=== PATIENT | female | born 1950 | race Caucasian/White ===

== ENCOUNTER 2022-05-20 11:16 | Inpatient (IN) | payer MEDICARE ==
[~2022-05-20] VITALS: Ht 152.4 cm; Wt 51.0 kg
[2022-05-20] MEDS ORDERED: AMLO1CAP5 PO (13:00)
[2022-05-20] MEDS ORDERED: ATOR80TA76 PO (13:00)
[2022-05-20] MEDS ORDERED: NICO-685 TD (13:00)
[2022-05-20] MEDS ORDERED: FLUO40CA PO (13:00)
[2022-05-20] MEDS ORDERED: ASPI-1238 PO (13:00)
[2022-05-20] MEDS ORDERED: HYDR-3924 PO (13:00)
--- NOTE | 2022-05-20 15:47 | Occupational Therapy Eval ---
OT Evaluation-General/PLF Medical Diagnosis Admission Date Medical Diagnosis: CVA Onset Date: May 18, 2022 Therapy Diagnosis Therapy Diagnosis: decreased ADL status Referral Physician: Ila Referral Reason: Evaluation/Treatment Medical History Additional Medical History anxiety, HTN, tobacco abuse, dislipidemia Current History 05/18/22 ED due to R side weakness/inability to walk. MRI showed posterior L MCA CVA. Pt transferred to ARU 05/20/22 Social History Home: Apartment Current Living Status: Alone Entry Into Home: Stairs Without Railing Steps Into Home: 1 (small threshold) Pt's SO is able to stay with pt at discharge. Pt able to hold onto door jam to navigate threshold ADL-Prior Level of Function SCALE: Activities may be completed with or without assistive devices. 8-Idpxtntxjz-fpfzszz completes the activity by him/herself with no assistance from a helper. 5-Set-up or Clean-up Assistance-helper sets up or cleans up; patient completes activity. [place] assists only prior to or following the activity. 4-Supervision or Touching Assistance-helper provides verbal cues and/or touching/steadying and/or contact guard assistance as patient completes a ctivity. Assistance may be provided throughout the activity or intermittently. 3-Partial/Moderate Assistance-helper does LESS THAN HALF the effort. [place] lifts, holds or supports trunk or limbs, but provides less than half the effort. 2-Substantial/Maximal Assistance-helper does MORE THAN HALF the effort. [place] lifts or holds trunk or limbs and provides more than half the effort. 6-Chtouevbd-sphreb does ALL the effort. Patient does none of the effort to complete the activity. Or, the assistance of 2 or more helpers is required for the patient to complete the activity. If activity was not attempted, code reason: 7-Patient Refused. 9-Not Applicable-not attempted and the patient did not perform the activity before the current illness, exacerbation or injury. 10-Not Attempted due to Environmental Limitations-(lack of equipment, weather restraints, etc.). 88-Not Attempted due to Medical Conditions or Safety Concerns. ADL PLOF Comments Pt reports IND with ADLs and functional mobility, no AD. She has a tub/shower with GBs and HH showerhead, no SC or bath bench. Self Care: Independent Functional Cognition: Independent OT Current Status Subjective Pt agreeable to OT evaluation followed by OT/PT cotreat. Mental Status/Objective Patient Orientation: Person, Place, Time, Situation Current Glasses/Contacts: Yes (reading) Hearing Aids: No Dentures/Partials: No Hand Dominance: Right Upper Extremity ROM WFL, BUE shoulder flexion to approx 160 degrees. Upper Extremity Coordination slightly decreased R hand Upper Extremity Sensation Pt reports "duller" sensation in RUE. Numbness at times in R hand digits 3-4 Upper Extremity Strength RUE grossly 4-/5, LUE grossly 4/5 ADL-Treatment Eating (QC): 5 (pt states some difficulty with managing utensils, but able to manage) Oral Hygiene (QC): 4 (CGA standing at sink) Shower/Bathe Self (QC): 4 (CGA in stand. Pt able to wash/dry all parts.) Upper Body Dressing (QC): 6 (IND doffing/donning sweatshirt.) Lower Body Dressing (QC): 4 (CGA) On/Off Footwear (QC): 6 (IND donning/doffing socks/shoes/AFO sitting in chair) Toileting Hygiene (QC): 4 (CGA) Other Treatments OT evaluation complete, OT/PT cotreat due to skill of 2 clinicians required which a coordinator of rehabilitation services could not perform in order to coordinate UE/LEs, decrease fall risk, and due to pt's limitations in strength, activity tolerance, mobility and transfer. OT focused on ADLs, UE placement, cues for sequencing and safety. PT focused on LE placement, gross overall movement, transfers and mobility. Pt completed functional mobility and transfers including car transfer, mobility using FWW, stairs, uneven surface, toilet transfer. Pt completed toileting, CGA in stand for clothing management. Pt stood at sink to wash hands, bracing pelvis on sink for support. Pt demo'd ability to don/doff socks/shoes and AFO, as well as a sweatshirt. Pt declined showering and LE dressing at this time, as she had completed at other hospital prior to admission. Pt completed various balance tests. OT provided pt with built up handles for toothbrush and utensils. Pt st ates it feels easier to hold onto items in R hand. Pt completed mobility around [facility] common area, stood at table to complete RUE fine motor "Perfection" task. Pt able to place all pieces into correct location on board. Pt then performed functional mobility around [facility] common area, locating 9 cones on various surfaces, requiring VCs to locate last 3 cones. Pt returned to her room, com pleted toileting, and transferred to recliner. Post tx, pt in recliner, call light in reach and all needs met. During tx, pt appeared slightly impulsive requiring VCs for safety and sequencing. IND rolling, supine to/from sit. Min A sit to stand and bed to chair. 1 major LOB when asked to sit EOB (L leg scissored across R requiring Mod A to keep pt from falling onto bed. Education OT Patient Education: Correct positioning, Energy conservation, Modified ADL techniques, Progress toward Goal/Update tx plan, Purpose of tx/functional activities, Rehab process Teaching Recipient: Patient Teaching Methods: Discussion Response to Teaching: Verbalize Understanding BIMS CAM BIMS Expression of Ideas and Wants: Without Difficulty Understanding Verbal Content: Understands Brief Interview/Mental Status: Yes IRF CHRISTIANO BIMS: IRF CHRISTIANO BIMS Response (Comments) Value Repitition of Three Words Three 3 Recalls Socks Yes, No Cue Required 2 Recalls Blue Yes, No Cue Required 2 Recalls Bed Yes, No Cue Required 2 Year Correct 3 Month Accurate Within 5 Days 2 Day Correct 1 Total 15 CAM Mental Status Change/Baseline: 0 Inattention: 0 Disorganized thinkin Altered level of consciousness: 0 OT Short Term Goals Short Term Goals Time Frame: May 31, 2022 Shower/bathe self: 5 Upper body dressin Lower body dressin Putting on/taking off footwear: 5 OT Skiver Counter Goals Senior Living Goals Time Frame: Jun 11, 2022 Eating (QC): 6 Oral Hygiene (QC): 6 Toileting Hygiene (QC): 6 Shower/Bathe Self (QC): 6 Upper Body Dressing (QC): 6 Lower Body Dressing (QC): 6 On/Off Footwear (QC): 6 Additional Goals: 1-Demonstrate ADL Tasks, 2-Verbalize Understanding, 3- ImproveStrength/Pelon 1=Demonstrate adherence to instructed precautions during ADL tasks. 2=Patient will verbalize/demonstrate understanding of assistive devices/modifications for ADL. 3=Patient will improve strength/tolerance for activity to enable patient to perform ADL's. OT Education/Plan Problem List/Assessment Assessment: Decreased Activ Tolerance, Decreased UE Strength, Impaired Funct Balance, Impaired I ADL's, Impaired Self-Care Skills Discharge Recommendations Plan/Recommendations: Continue POC Treatment Plan/Plan of Care Patient would benefit from OT for education, treatment and training to promote independence in ADL's, mobility, safety and/or upper extremity function for ADL's. Plan of Care: ADL Retraining, Functional Mobility, Group Exercise/Act as Ind, UE Funct Exercise/Act, UE Neuromus Re-Ed/Coord Treatment Duration: Jun 11, 2022 Frequency: At least 5 of 7 days/Wk (IRF) Estimated Hrs Per Day: .25 hour per day Agreement: Yes Rehab Potential: Good Time Start Time: 15:23 Stop Time: 16:53 DATE: Jun 11, 2022 Total Time Billed (hr/min): 90 Billed Treatment Time [id number] PT eval, [id number] OT eval, [id number] Cotreat 1, EVL (10'), ADL 2 (30'), FA 3 (50') TERENCE CARRILLO OT May 20, 2022 15:46
[2022-05-20 16:01] VITALS: BP 165/85
--- NOTE | 2022-05-20 16:05 | Physical Therapy Evaluation ---
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 Reviewed History: Yes Social History Home: Apartment Current Living Status: Alone Entry Into Home: Stairs Without Railing PT Steps Into Home: 1 (small threshold) States her 2 BR apartment is small and she can hold onto objects while walking thru apartment Prior Prior Level of Function SCALE: Activities may be completed with or without assistive devices. 0-Wwojkaivza-yjatcow completes the activity by him/herself with no assistance from a helper. 5-Set-up or Clean-up Assistance-helper sets up or cleans up; patient completes activity. [place] assists only prior to or following the activity. 4-Supervision or Touching Assistance-helper provides verbal cues and/or touching/steadying and/or contact guard assistance as patient completes activity. Assistance may be provided throughout the activity or intermittently. 3-Partial/Moderate Assistance-helper does LESS THAN HALF the effort. [place] lifts, holds or supports trunk or limbs, but provides less than half the effort. 2-Substantial/Maximal Assistance-helper does MORE THAN HALF the effort. [place] lifts or holds trunk or limbs and provides more than half the effort. 3-Oymmhbryk-qtvjic does ALL the effort. Patient does none of the effort to com plete the activity. Or, the assistance of 2 or more helpers is required for the patient to complete the activity. If activity was not attempted, code reason: 7-Patient Refused. 9-Not Applicable-not attempted and the patient did not perform the activity before the current illness, exacerbation or injury. 10-Not Attempted due to Environmental Limitations-(lack of equipment, weather restraints, etc.). 88-Not Attempted due to Medical Conditions or Safety Concerns. Bed Mobility: 6 Transfers (B,C,W/C): 6 Gait: 6 Stairs: 6 Wheelchair Mobility: 9 Indoor Mobility (Ambulation): Independent Stairs: Independent Prior Devices Use: None PT Evaluation-Current Subjective Patient A&O x 4. Pleasant and conversational with appropriate humor. Eager to participate, however does exhibit impulsivity with functional tasks Pain Numeric Pain Scale: 0-No Pain Comment: No c/o pain Section J - Health Conditions 1. Rarely or not at all 2. Occasionally 3. Frequently 4. Almost constantly 8. Unable to answer Pain Effect on Sleep: 1 Pain Interference with Therapy: 1 Pain Interference w/Day-to-Day: 1 Pt/Family Goals To return home to apartment with help from s.o. as needed. To walk better. Objective Patient Orientation: Person, Place, Situation ROM/Strength ROM Upper Extremities Deferred to OT ROM Lower Extremities WNL (L) LE. WFL (R) hip/knee. Does exhibit AROM with (R) ankle DF/PF that is functional -- has (R) AFO but may not need terminal block assembler. Strength Upper Extremities Deferred to OT Strength Lower Extremities 5/5 (L) LE. 4/5 (R) hip flexion,abduction/adduction. 5-/5 (R) knee extension/flexion. (R) ankle DF 4-/5, PF 4-/5. Neuromuscular (Tone, Coordination, Reflexes) Impaired motor coordination noted with (R) LE with (R) heel to (L) green[place] and combo hip flexion with alt LAQ. (R) LE ataxia noted with gait, difficulty wiht foot placement. Sensory Vision: Wears Glasses Hearing: Functional Hand Dominance: Right Sensation Right Lower Extremit: Intact Sensation Left Lower Extremity: Intact Transfers Roll Left & Right (QC): 6 Sit to Lying (QC): 6 Lying to Sitting/Side of Bed(Q: 6 Sit to Stand (QC): 3 (Min - steadying assist with v.c. for hand placement, stand to FWW) Chair/Reg-lj-Dvtmf Xfer(QC): 3 (MIn (A) with FWW, ataxic (R) LE) Toilet Transfer (QC): 3 (min (A) with FW, assist to control descent.) Car Transfer (QC): 3 (impulsivity noted, min (A)) 1 major LOB when asked to sit to EOB following Milton -- (L) leg scissored across (R) with mod (A) required to keep patient from falling uncontrolled onto bed. Gait Does the Patient Walk?: Yes Mode of Locomotion: Walk Anticipated Mode of Locomotion: Walk Walk 10 feet (QC): 3 (Min (A) with FW, (R) LE ataxia) Walk 50 ft with 2 Turns(QC): 3 (Min (A) with FWW, narrow SUSANA, scissors occassionally, ataxic (R) LE, AFO in place) Walk 150 ft (QC): 3 (Min (A) with FWW, narrow SUSANA, scissors occassionally, ataxic (R) LE, AFO in place) Walking 10ft/uneven surface-QC: 3 (with FWW) Distance: Gait distance 75', 150', 175' with FWW, when fatigued the (R) LE lags Comments/Gait Description Narrow SUSANA, mild trendelenburg over (R) LE, ocassional scissoring during gait, occasionally leaves feet outside of frame of walker during turns. Wheelchair Training Does the Pt Use a Wheelchair?: No Wheel 50 ft with 2 turns (QC): 9 Wheel 150 ft (QC): 9 Type of Wheelchair: N/A Stairs #of Steps: 5 (x 2) 1 Step (curb) (QC): 3 (Min (A) with v.c. for walker placement and LE sequencing .) 4 Steps (QC): 3 (Min (A) with (B) handrails and v.c. for correct sequencing of LE's, step-to pattern) 12 Steps (QC): 10 Walking Assistive Device: Walker Balance Sitting Static: Normal Sitting Dynamic: Good Standing Static: Fair Standing Dynamic: Fair Picking up an Object (QC): 4 (min (A), patient quick and impulsive requiring assist to maintain position when cued to perform task) Special Test Comments Milton TU.7 seconds with FWW Gait speed: 6.1m/24.8 sec = .24m/sec Treatment Gait training focusing on managing a wider SUSANA during gait, ensuring that (R) LE steps up to (L) as patient fatigues. Education on correct sit<>stand technique for hand placement for transfer safety and to ensure that patient is not bracing with legs exclusively on chair for sit<>stand. Standing endurance activities/standing balance activities. Cognitive challenges during gait with naming an animal with each letter of the alphabet - patient able to perform without interruptions in gait pattern no LOB. Assessment/Needs Patient s/p (L) CVA with (R) hemiplegia/ataxia that mainly affects (R) LE. Does have AROM of (R) ankle, therefore AFO sent from [facility] may not be needed intermediate - continue to assess. Has safety awareness/impulsivity during transfers and upright mobility tasks that will be addressed. Has upright balance deficits that present as a current fall risk - will require skilled PT intervention to maximize balance/gait for return home. Has mild (L) LE weakness as well as moderate coordination deficits that will required strengthening exercises/neuro re-ed. Demonstrates motivation to improve. Will also benefit from group activities and/or co-treatments with OT for safety education, strengthening, problems solving, high level mobility coordination tasks for return home. . Rehab Potential: Good Equipment Needs FWW PT Inclusion Paraeducator Goals Inclusion Paraeducator Goals PT Inclusion Paraeducator Goals Time Frame: Jun 10, 2022 Roll Left to Right (QC): 6 Sit to Lying (QC): 6 Lying-Sitting on Side/Bed(QC): 6 Sit to Stand (QC): 6 Chair/Nmf-eo-Rvbtf Xfer(QC): 6 (Patient to perform stand<>pivot transfers with FWW mod (I) with correct hand placement 100% of time.) Toilet/Commode Transfer (QC): 6 Car Transfer (QC): 5 Does the Patient Walk: Yes Walk 10 feet (QC): 6 Walk 10ft-Uneven Surface(QC): 6 (With FWW) Walk 50ft with 2 Turns (QC): 6 Walk 150 ft (QC): 6 (Patient will ambulate 200' mod (I) with FWW with improved stepping strategy (R) LE.) Does the Pt use WC or Scooter?: No Wheel 50 feet with 2 turns (QC: 9 Type: N/A Wheel 150 feet: 9 Type: N/A 1 Step (curb) (QC): 6 (with FWW) 4 Steps (QC): 5 ((B) handrails) 12 Steps (QC): 5 ((B) handrails) Picking up an Object (QC): 6 LTG: Patient will demonstrate [place] Balance score of 45 or better. LTG: Patient will demonstrate TUG score of 24.7 seconds or less. PT Plan Problem List Problem List: Activity Tolerance, Functional Strength, Safety, Balance, Gait, Transfer Treatment/Plan Treatment Plan: Continue Plan of Care Treatment Plan: Education, Functional Activity Pelon, Functional Strength, Group Therapy, Gait, Safety, Therapeutic Exercise, Transfers, Other Neuro re-education Treatment Duration: Jun 10, 2022 Frequency: At least 5 of 7 days/Wk (IRF) Estimated Hrs Per Day: 1.5 hours per day Patient and/or Family Agrees t: Yes Safety Risks/Education Patient Education: Gait Training, Transfer Techniques, Safety Issues Teaching Recipient: Patient Teaching Methods: Demonstration, Discussion Response to Teaching: Verbalize Understanding, Unable to Comprehend Discharge Recommendations Plan Home with assist of s.o. Equpiment Recommendations-D/C: Front Wheeled Walker Time Time In: 1512 Time Out: 1653 DATE: May 20, 2022 Total Billed Treatment Time: 90 Total Billed Treatment 10' eval - moderate, ([id number]) 80' co-treatment Elizabeth Zamarripa PT May 20, 2022 16:05
--- NOTE | 2022-05-20 18:35 | PM&R Post Admission Assessment ---
PM&R HP Date of Visit: May 20, 2022 Time of Visit: 19:00 History of Present Illness CC: CVA HPI: This is a 72yoWF clinic patient of Dr Lombardo who presents from [facility] following acute left basal ganglia stroke with HTN urgency. She currently smokes and has for 55 years. Nicotine patch ordered. Right sided weakness is improving with therapy so the goal is to optimize function and increase stamina and confidence with ADL's in order to DC home alone. 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 She does not weak O2. Fall risk is high. Bowels are moving and voiding well. Eating well. Past Uvjqiiu-Oyiete-Nyomlo Hx Past Med/Social Hx: Reviewed Nursing Past Med/Soc Hx, Reviewed and Corrections made Patient Social History Marrital Status: single Employed/Student: employed Alcohol Use: Denies Use Smoking Status: Current Everyday Smoker Past Medical History Cardiac: High Cholesterol, Hypertension Neurological: Stroke Psychosocial: Anxiety Prior Level of Function Bed Mobility: 6 Transfers: 6 Gait: 6 Stairs: 6 Wheelchair Mobility: 9 Indoor Mobility (Ambulation): Independent Stairs: Independent Prior Devices Use: None Self Care: Independent Functional Cognition: Independent Current Level of Fuctioning Roll Left to Right: 6 Sit to Lyin Lying to Sitting/Side of Bed: 6 Sit to Stand: 3 (Min - steadying assist with v.c. for hand placement, stand to FWW) Chair/Kpg-ic-Emuom Xfer: 3 (MIn (A) with FWW, ataxic (R) LE) Car Transfer: 3 (impulsivity noted, min (A)) Does the Patient Walk: Yes Mode of Locomotion: Walk Anticipated Mode of Locomotion: Walk Walk 10 feet: 3 (Min (A) with FW, (R) LE ataxia) Walk 50 ft with 2 Turns: 3 (Min (A) with FWW, narrow SUSANA, scissors occassionally, ataxic (R) LE, AFO in place) Walk 150 ft: 3 (Min (A) with FWW, narrow SUSANA, scissors occassionally, ataxic (R) LE, AFO in place) Walking 10ft on uneven surface: 3 (with FWW) Does the Pt Use a Wheelchair: No Wheel 50 ft with 2 turns: 9 Wheel 150 ft: 9 Type of Wheelchair: N/A #of Steps: 5 (x 2) 1 Step (curb): 3 (Min (A) with v.c. for walker placement and LE sequencing.) 4 Steps: 3 (Min (A) with (B) handrails and v.c. for correct sequencing of LE's, step-to pattern) Walking Assistive Device: Walker 12 Steps: 10 Picking up an Object: 4 (min (A), patient quick and impulsive requiring assist to maintain position when cued to perform task) Eatin (pt states some difficulty with managing utensils, but able to manage) Oral Hygiene: 4 (CGA standing at sink) Shower/Bathe Self: 4 (CGA in stand. Pt able to wash/dry all parts.) Upper Body Dressin (IND doffing/donning sweatshirt.) Lower Body Dressin (CGA) On/Off Footwear: 6 (IND donning/doffing socks/shoes/AFO sitting in chair) Toileting Hygiene: 4 (CGA) PM&R Allergy/Meds/Data Review Allergies Coded Allergies: Penicillins (Verified Allergy, Unknown, RASH, 05/20/22) Home Medications Scheduled Amlodipine Besylate/Benazepril (Lotrel 5-20 mg Capsule), 1 EACH PO DAILY, (Reported) Aspirin (Aspirin EC), 81 MG PO DAILY, (Reported) Atorvastatin Calcium (Atorvastatin Calcium), 80 MG PO HS, (Reported) Fluoxetine HCl (Fluoxetine HCl), 40 MG PO DAILY, (Reported) Hydralazine HCl (Hydralazine HCl), 50 MG PO Q12H, (Reported) Nicotine (Nicotine Patch), 21 MG TD DAILY, (Reported) Current Medications Current Medications Reviewed Review of Systems Constitutional: see HPI, dizziness, malaise, weakness EENTM: no symptoms reported Respiratory: no symptoms reported Cardiovascular: no symptoms reported Gastrointestinal: no symptoms reported Genitourinary: no symptoms reported Musculoskeletal: back pain, joint pain Skin: no symptoms reported Psychiatric/Neurological: Anxiety, Depressed, Numbness, Weakness All Other Systems Reviewed Negative Unless Noted: Yes Physical Exam Physical Exam Vital Signs Vital Signs - First Documented 05/20/22 16:01 Temp 36.5 Pulse 67 Resp 20 B/P (MAP) 165/85 (111) Pulse Ox 98 O2 Delivery Room Air Capillary Refill : Height, Weight, BMI Height: '" Weight: lbs. oz. kg; BMI Method: General Appearance: No Apparent Distress, WD/WN, Chronically ill, Thin Eyes: Bilateral Eye Normal Inspection, Bilateral Eye PERRL HEENT: PERRL/EOMI, Normal ENT Inspection, Pharynx Normal Neck: Full Range of Motion, Normal Inspection, Non Tender, Supple, Carotid Bruit Respiratory: Chest Non Tender, Lungs Clear, No Accessory Muscle Use, No Respiratory Distress, Decreased Breath Sounds Cardiovascular: Regular Rate, Rhythm, No Edema, No Gallop, No JVD, No Murmur, Normal Peripheral Pulses Gastrointestinal: Normal Bowel Sounds, No Organomegaly, No Pulsatile Mass, Non Tender, Soft Back: Normal Inspection, No CVA Tenderness, No Vertebral Tenderness Extremity: Normal Capillary Refill, Normal Inspection, Normal Range of Motion, Non Tender, No Calf Tenderness, No Pedal Edema Neurologic/Psychiatric: Alert, Oriented x3, matlab developer II-XII Norm as Tested, Abnormal Gait, Depressed Affect, Motor Weakness (right sided weakness 3/5) Skin: Normal Color, Warm/Dry Lymphatic: No Adenopathy PM&R Medical Assessment & Plan REHAB/MEDICAL ASSESSMENT AND PLAN: REHAB IMPAIRMENT GROUP: CVA ETIOLOGIC DIAGNOSIS: CVA The comorbidities that impact the patients function and/or functional outcome by: right sided weakness, continued smoking, HTN OOC, fall risk REHAB PLAN: The patient is being admitted to our comprehensive inpatient rehabilitation facility and can tolerate the intensity of service consisting of at least: 180 minutes of therapy a day, 5 out of 7 days a week Rehab treatment will consist of: PT OT will focus on regaining stamina with ambulation along with ADL's in order to regain stamina and ADL's independence in order to return home The patient/family has a good understanding of our discharge process and will benefit from an interdisciplinary inpatient rehabilitation program. The patient has potential to make improvement and is in need of at least two of the following multidisciplinary therapies including but not limited to physical, occupational, speech, and prosthetics and orthotics. Additionally the patient will need services from respiratory, nutritional services, wound care, psychology, etc. (Customize this to each patient). Given the patients complex condition and risk of further medical complications, rehabilitation services cannot be safely or effectively provided at a lower level of care such as a snf facility. BARRIERS TO DISCHARGE: Lives alone ESTIMATED LOS: 10 days DISPOSITION: Home RELEVANT CHANGES SINCE PREADMISSION SCREENING: I have compared the patients medical and functional status at the time of the preadmission screening and there are: no changes PROGNOSIS: Good REHABILITATION GOALS: 1. PT OT will focus on regaining stamina with ambulation along with ADL's in order to regain stamina and ADL's independence in order to return home All the above goals were reviewed with the patient and he/she is in agreement. By signing this document, I acknowledge that I have personally performed a full physical examination on this patient within 24 hours of admission to this inpatient rehabilitation facility and have determined the patient to be able to tolerate the above course of treatment at an intensive level for a reasonable period of time. I will be completing a detailed individualized Plan of Care for this patient by day #4 of the patients stay based upon the Preadmission Screen, the Post-Admission Evaluation, and the therapy evaluations. Admission Dx/Comorbidities: (1) CVA (cerebral vascular accident) ICD Codes: I63.9 - Cerebral infarction, unspecified Assessment/Plan Assessment and Plan Assess & Plan/Chief Complaint Assessment: CVA with right sided weakness HTN HLP Smoker Plan: Monitor closely PT OT Monitor BP ALONZO ANGEL DO May 20, 2022 18:35
[2022-05-20] MEDS ORDERED: NON-FORMULARY MEDICATION 1 EA EA (Hydralazine HCl 50 MG) PO SCH (18:45)
[2022-05-20] MEDS ORDERED: ALPRAZolam 0.25 MG (XANAX) TAB PO PRN (19:15)
[2022-05-20] MEDS ORDERED: FLEET ENEMA ADULT 1 EA BTL PR PRN (19:15)
[2022-05-20] MEDS ORDERED: ONDANSETRON 4 MG (ZOFRAN) ORAL DISSOLVE TAB PO PRN (19:15)
[2022-05-20] MEDS ORDERED: ACETAMINOPHEN 325 MG TABLET PO PRN (19:15)
[2022-05-20] MEDS ORDERED: LOPERAMIDE 2 MG (IMODIUM) TABLET PO PRN (19:15)
[2022-05-20] MEDS ORDERED: BISACODYL 10 MG SUPP (DULCOLAX) PR PRN (19:15)
[2022-05-20] MEDS ORDERED: diphenhydrAMINE 25 MG TAB (BENADRYL) PO PRN (19:15)
[2022-05-20] MEDS ORDERED: MELATONIN 3 MG TABLET PO PRN (19:15)
[2022-05-20] MEDS ORDERED: LACTULOSE SYRUP 10GM/15ML (ENULOSE) 30ML UDC PO PRN (19:15)
[2022-05-20] MEDS ORDERED: DOCUSATE SODIUM 100 MG (COLACE) CAP PO PRN (19:15)
[2022-05-20] MEDS ORDERED: CALCIUM CARBONATE 500 MG (TUMS) TAB.CHEW PO PRN (19:15)
[2022-05-20] MEDS ORDERED: guaiFENesin/CODEINE (ROBITUSSIN AC) 10ML UDC PO PRN (19:15)
[2022-05-20] MEDS: NICOTINE 21 MG (NICODERM) PATCH TD SCH ×2 (19:50→21:27)
[2022-05-20 19:55] VITALS: BP 123/68
[2022-05-20] MEDS: hydrALAZINE (APRESOLINE) 25 MG TAB PO SCH (21:28)
[2022-05-20] MEDS: SENNA W/DOCUSATE (SENOKOT S) TABLET PO SCH (21:28)
[2022-05-20] MEDS: DOCUSATE SODIUM 100 MG (COLACE) CAP PO SCH (21:28)
[2022-05-20] MEDS: polyethylene glycoL POWDER 17 GM (MIRALAX) PACK PO SCH (21:28)
[2022-05-21 05:59] LABS: BASOPHILS # (AUTO) 0.1 10^3/uL (0.0-0.1); BASOPHILS % (AUTO) 2 % (0-10); EOSINOPHILS # (AUTO) 0.2 10^3/uL (0.0-0.3); EOSINOPHILS % (AUTO) 3 % (0-10); HEMATOCRIT 40 % (35-52); HEMOGLOBIN 13.5 g/dL (11.5-16.0); LYMPHOCYTES # (AUTO) 2.6 10^3/uL (1.0-4.0); LYMPHOCYTES % (AUTO) 40 % (12-44); MEAN CORPUSCULAR HEMOGLOBIN 31 pg (25-34); MEAN CORPUSCULAR HGB CONC 34 g/dL (32-36); MEAN CORPUSCULAR VOLUME 91 fL (80-99); MEAN PLATELET VOLUME 11.1 fL (9.0-12.2); MONOCYTES # (AUTO) 0.7 10^3/uL (0.0-1.0); MONOCYTES % (AUTO) 10 % (0-12); NEUTROPHILS # (AUTO) 2.9 10^3/uL (1.8-7.8); NEUTROPHILS % (AUTO) 45 % (42-75); PLATELET COUNT 252 10^3/uL (130-400); WHITE BLOOD COUNT 6.4 10^3/uL (4.3-11.0)
[2022-05-21 06:10] LABS: ALBUMIN 3.6 GM/DL (3.2-4.5); BILIRUBIN,TOTAL 0.5 MG/DL (0.1-1.0); CALCIUM 9.3 MG/DL (8.5-10.1); CREATININE SERUM 0.89 MG/DL (0.60-1.30); POTASSIUM 4.2 MMOL/L (3.6-5.0); TOTAL PROTEIN 6.3 GM/DL (6.4-8.2)
--- NOTE | 2022-05-21 06:43 | Individualized Plan of Care ---
Individualized Plan of Care Rehab Nursing IPOC Order Admission Date May 20, 2022 at 15:15 Current Orders Orders Heart Healthy (05/20/22 Lunch) Admission Arrival Bed Request (05/20/22 15:36) Ensure Plus Vanilla (05/20/22 17:57) Aspirin Enteric Coated Tablet (Ecotrin T (05/21/22 09:00) Atorvastatin Tablet (Lipitor Tablet) (05/20/22 21:00) Nicotine Patch (Nicoderm Patch) (05/21/22 09:00) (Nf) Amlodipine Besylate/Benazepril (Lot (05/21/22 09:00) (Nf) Fluoxetine Hcl (05/21/22 09:00) (Nf) Hydralazine Hcl (05/20/22 18:45) Patch Removal (Patch Removal) (05/21/22 08:59) Fluoxetine Capsule (Prozac Capsule) (05/21/22 09:00) Hydralazine Tablet (Apresoline Tablet) (05/20/22 21:00) Amlodipine Tablet (Norvasc Tablet) (05/21/22 09:00) Lisinopril Tablet (Zestril Tablet) (05/21/22 09:00) Admission Order(Inpt,Obs,Sdc) (05/20/22 19:02) Vital Signs: Per Unit Policy ( 08,16,00 (05/20/22 19:02) Taye Huang (05/20/22 19:02) Sequential Compression Device (05/20/22 19:02) Warehouse Shipper-Inpt Rehab Con (05/20/22 19:02) Rehab Nursing Orders-Ipoc (05/20/22 19:02) Physical Therapy Rehab Orders (05/20/22 19:02) Occupational Therapy Rehab Ord (05/20/22 19:02) Speech Therapy Rehab Orders (05/20/22 19:02) Cbc With Automated Diff (05/21/22 06:00) Comprehensive Metabolic Panel (05/21/22 06:00) Precautions (Aru) (05/20/22 19:02) Weekly Weight WEEK (05/20/22 19:02) Rehab-Intensity Of Therapy (05/20/22 19:02) Initiate Admission Nursing Pro .admission (05/20/22 19:02) Alprazolam Tablet (Xanax Tablet) (05/20/22 19:15) Calcium Carbonate Chew Tablet (Antacid C (05/20/22 19:15) Diphenhydramine Tablet (Benadryl Tablet) (05/20/22 19:15) Docusate Sodium Capsule (Colace Capsule) (05/20/22 21:00) Docusate Sodium Capsule (Colace Capsule) (05/20/22 19:15) Bisacodyl Suppository (Dulcolax Supposit (05/20/22 19:15) Lactulose Oral Solution (Enulose Oral So (05/20/22 19:15) Na Phos/Na Biphos Enema (Fleet Enema Bakari (05/20/22 19:15) Guaifenesin/Codeine Syrup (Robitussin Ac (05/20/22 19:15) Loperamide Tablet (Imodium Tablet) (05/20/22 19:15) Melatonin Tablet (Melatonin Tablet) (05/20/22 19:15) Polyethylene Glycol Powder Pkt (Miralax (05/20/22 21:00) Ondansetron Oral Dissolve Tab (Zofran (05/20/22 19:15) Senna S Tablet (Senokot S Tablet) (05/20/22 21:00) Acetaminophen Tablet/Caplet (Tylenol T (05/20/22 19:15) Code/Resuscitation (05/20/22 19:03) Ambulate 08,12,20 (05/20/22 19:03) Sequential Compression Device ONCE (05/20/22 19:03) Initiate Admission Nursing Pro .admission (05/20/22 19:03) Isolation Central Supply Req (05/20/22 19:03) Nicotine Patch (Nicoderm Patch) (05/20/22 19:30) Patch Removal (Patch Removal) (05/21/22 08:59) Patient Visit (05/20/22 ) Pt Eval Moderate Complexity (05/20/22 ) Gait Training, Ea 15 Min (05/20/22 ) Functional Activities, Ea 15 (05/20/22 ) Patient Visit (05/21/22 ) Gait Training, Ea 15 Min (05/21/22 ) Functional Activities, Ea 15 (05/21/22 ) Exercise Therap, Ea 15 Min (05/21/22 ) Patient Visit (05/21/22 ) Gait Training, Ea 15 Min (05/21/22 ) Exercise Therap, Ea 15 Min (05/21/22 ) Rehab Nursing Orders: Ongoing Assess. of Cognitive Status, Ongoing Assess. of Function Status, Bladder Management, Bladder Scan, Bladder Training, Bowel Management, Bowel Training, Disease Management & Educaiton, DVT Prophylaxis, Fall Prevention, Fluid/Electrolyte/Nutrition Mgmt, Infection Prevention, Medication Management & Education, Management of Risks & Complications, Management of Skin Intergrity, Nutrition Management, Pain Management, Patient/Family Support, Safety Management Intensity of Therapy to be met Patient to be seen: Min.3h per day/5 of 7d PT IPOC Problem List: Activity Tolerance, Functional Strength, Safety, Balance, Gait, Transfer Treatment Plan: Continue Plan of Care Education, Functional Activity Pelon, Functional Strength, Group Therapy, Gait, Safety, Therapeutic Exercise, Transfers, Other Treatment Duration: Jun 10, 2022 Frequency: At least 5 of 7 days/Wk (IRF) Estimated Hrs Per Day: 1.5 hours per day OT IPOC Problems: Decreased Activ Tolerance, Decreased UE Strength, Impaired Funct Balance, Impaired I ADL's, Impaired Self-Care Skills OT Treatment, Training and Edu: Yes Plan of Care: ADL Retraining, Functional Mobility, Group Exercise/Act as Ind, UE Funct Exercise/Act, UE Neuromus Re-Ed/Coord Treatment Duration: Jun 11, 2022 Frequency: At least 5 of 7 days/Wk (IRF) Estimated Hrs Per Day: .[address] IPOC Speech Therapy Treatment Plan: Discontinue ST Treatment Duration: May 20, 2022 Frequency: Modified Program (IRF) Estimated Hrs Per Day: Other Warehouse Shipper/Case Mgmt Warehouse Shipper/Case Managemen: Discharge Planning Dietitian/Reel And Rewinder Operator Dietitian/Reel And Rewinder Operator to monitor nutritional status and make changes and/or recommendations as needed and work with speech pathology on dietary upgrades as the occur. Physician IPOC Medical Issues being managed closely and that require the 24 hour availability of a physician: Recent CVA with labile BP will require close monitoring and will monitor lungs closely due to smoking hx and monitor for any decompensation Medical Issues: Bowel/Bladder Function, DVT Prophylaxis, Falls Precautions, Fluid/Electrolyte/Nutrition Balance, Infection Protection, Pain Management Brief Synthesis of Preadmission Screen, Post-Admission Evaluation, and Therapy Evaluations: PT OT will focus on regaining strength from CVA residual with use of AD in order to increase ADL independence in order to return home Medical Prognosis: Good Anticipated Length of Stay: 7 days ALONZO ANGEL DO May 21, 2022 06:43
--- NOTE | 2022-05-21 06:43 | PM&R Progress Note ---
Subjective HPI/CC On Admission Date Seen by Provider: May 21, 2022 Time Seen by Provider: 12:30 Subjective/Events-last exam 05/21/2022: Doing well Participation is good No major concerns BP stable Labs reviewed Review of Systems General: Fatigue, Malaise Objective Exam Vital Signs Vital Signs Date Time Temp Pulse Resp B/P (MAP) Pulse Ox O2 Delivery O2 Flow Rate FiO2 05/21/22 08:20 Room Air 05/21/22 08:00 36.6 72 18 144/80 (101) 94 Capillary Refill : General Appearance: No Apparent Distress, WD/WN, Chronically ill, Thin HEENT: PERRL/EOMI, Normal ENT Inspection, Pharynx Normal Neck: Full Range of Motion, Normal Inspection, Non Tender, Supple, Carotid Bruit Respiratory: Chest Non Tender, Lungs Clear, No Accessory Muscle Use, No Respiratory Distress, Decreased Breath Sounds Cardiovascular: Regular Rate, Rhythm, No Edema, No Gallop, No JVD, No Murmur, Normal Peripheral Pulses Gastrointestinal: Normal Bowel Sounds, No Organomegaly, No Pulsatile Mass, Non Tender, Soft Back: Normal Inspection, No CVA Tenderness, No Vertebral Tenderness Extremity: Normal Capillary Refill, Normal Inspection, Normal Range of Motion, Non Tender, No Calf Tenderness, No Pedal Edema Neurologic/Psychiatric: Alert, Oriented x3, basket turner II-XII Norm as Tested, Abnormal Gait, Depressed Affect, Motor Weakness (right sided weakness 3/5) Skin: Normal Color, Warm/Dry Lymphatic: No Adenopathy Results/Procedures Lab Laboratory Tests 05/21/22 05:40 Patient resulted labs reviewed. FIM Transfers Therapy Code Descriptions/Definitions Functional Matteson Measure: 0=Not Assessed/NA 4=Minimal Assistance 1=Total Assistance 5=Supervision or Setup 2=Maximal Assistance 6=Modified Matt[place] 3=Moderate Assistance 7=Complete IndependenceSCALE: Activities may be completed with or without assistive devices. 5-Dcnfnqunnj-zpsjtov completes the activity by him/herself with no assistance from a helper. 5-Set-up or Clean-up Assistance-helper sets up or cleans up; patient completes activity. Corona assists only prior to or following the activity. 4-Supervision or Touching Assistance-helper provides verbal cues and/or touching/steadying and/or contact guard assistance as patient completes activity. Assistance may be provided throughout the activity or intermittently. 3-Partial/Moderate Assistance-helper does LESS THAN HALF the effort. Corona lifts, holds or supports trunk or limbs, but provides less than half the effort. 2-Substantial/Maximal Assistance-helper does MORE THAN HALF the effort. Corona lifts or holds trunk or limbs and provides more than half the effort. 4-Uipwhjevd-vjqtks does ALL the effort. Patient does none of the effort to complete the activity. Or, the assistance of 2 or more helpers is required for the patient to complete the activity. If activity was not attempted, code reason: 7-Patient Refused. 9-Not Applicable-not attempted and the patient did not perform the activity before the current illness, exacerbation or injury. 10-Not Attempted due to Environmental Limitations-(lack of equipment, weather restraints, etc.). 88-Not Attempted due to Medical Conditions or Safety Concerns. Roll Left to Right (QC): 6 Sit to Lying (QC): 6 Sit to Stand (QC): 3 (Min - steadying assist with v.c. for hand placement, stand to FWW) Chair/Fsn-hi-Outpq Xfer(QC): 3 (MIn (A) with FWW, ataxic (R) LE) Car Transfer (QC): 3 (impulsivity noted, min (A)) Gait Training Does the Patient Walk?: Yes Walk 10 feet (QC): 3 (Min (A) with FW, (R) LE ataxia) Walk 50 ft with 2 Turns(QC): 3 (Min (A) with FWW, narrow SUSANA, scissors occassionally, ataxic (R) LE, AFO in place) Walk 150 ft (QC): 3 (Min (A) with FWW, narrow SUASNA, scissors occassionally, ataxic (R) LE, AFO in place) Walking 10ft/uneven surface-QC: 3 (with FWW) Wheelchair Training Does the Pt Use a Wheelchair?: No Wheel 50 ft with 2 turns (QC): 9 Wheel 150 ft (QC): 9 Type of Wheelchair: N/A Stair Training #of Steps: 5 (x 2) 1 Step (curb) (QC): 3 (Min (A) with v.c. for walker placement and LE sequencing.) 4 Steps (QC): 3 (Min (A) with (B) handrails and v.c. for correct sequencing of LE's, step-to pattern) 12 Steps (QC): 10 Balance Picking up an Object (QC): 4 (min (A), patient quick and impulsive requiring assist to maintain position when cued to perform task) ADL-Treatment Eating (QC): 5 (pt states some difficulty with managing utensils, but able to manage) Oral Hygiene (QC): 4 (CGA standing at sink) Shower/Bathe Self (QC): 4 (CGA in stand. Pt able to wash/dry all parts.) Upper Body Dressing (QC): 6 (IND doffing/donning sweatshirt.) Lower Body Dressing (QC): 4 (CGA) On/Off Footwear (QC): 6 (IND donning/doffing socks/shoes/AFO sitting in chair) Toileting Hygiene (QC): 4 (CGA) Assessment/Plan Assessment and Plan Assess & Plan/Chief Complaint Assessment: CVA with right sided weakness HTN HLP Smoker Plan: Monitor closely PT OT Monitor BP 05/21/2022: Monitor closely (1) CVA (cerebral vascular accident) ALONZO ANGEL DO May 21, 2022 06:43
[2022-05-21 08:00] VITALS: BP 144/80
[2022-05-21] MEDS: hydrALAZINE (APRESOLINE) 25 MG TAB PO SCH ×2 (08:04→21:07)
[2022-05-21] MEDS: ASPIRIN E.C. 81 MG (ECOTRIN) TAB PO SCH (08:05)
[2022-05-21] MEDS: amLODIPine 5 MG (NORVASC) TAB PO SCH (08:05)
[2022-05-21] MEDS: FLUoxetine HCL 20 MG (PROzac) CAP PO SCH (08:05)
[2022-05-21] MEDS: lisINopril 20 MG (PRINIVIL) TABLET PO SCH (08:05)
[2022-05-21] MEDS: NICOTINE 21 MG (NICODERM) PATCH TD SCH (08:06)
[2022-05-21] MEDS: polyethylene glycoL POWDER 17 GM (MIRALAX) PACK PO SCH ×2 (08:07→21:07)
[2022-05-21] MEDS: SENNA W/DOCUSATE (SENOKOT S) TABLET PO SCH ×2 (08:07→21:07)
[2022-05-21] MEDS: NICOTINE PATCH REMOVAL TP SCH (08:07)
[2022-05-21] MEDS: DOCUSATE SODIUM 100 MG (COLACE) CAP PO SCH ×2 (08:07→21:07)
[2022-05-21] MEDS ORDERED: NICOTINE PATCH REMOVAL TP SCH (08:59)
[2022-05-21] MEDS ORDERED: NICOTINE 21 MG (NICODERM) PATCH TD SCH (09:00)
[2022-05-21] MEDS ORDERED: NON-FORMULARY MEDICATION 1 EA EA (Fluoxetine HCl 40 MG) PO SCH (09:00)
--- NOTE | 2022-05-21 11:14 | Speech Therapy Progress Note ---
Therapy Progress Note Speech pathology has received a cognitive linguistic evaluation and completed a medical chart review. Additionally, the clinician consulted with the occupational therapist for professional insight and experience. At this time, the patient does not appear to have cognitive needs or warrant skilled speech pathology. Please re-consult speech pathology if services would be appropriate or be of any assistance throughout the the rehabilitation process. Thank you. YOSELIN CONDON May 21, 2022 11:14
--- NOTE | 2022-05-21 12:46 | Physical Therapy Daily Note ---
PT Daily Note-Current Subjective Pt found lying in bed upon entry. Agreed to PT. Reports that she is not having any pain pre-treatment. States that she gets tired a lot faster than she did before her stroke. She states she would like to be independent at home again. Pain Section J - Health Conditions 1. Rarely or not at all 2. Occasionally 3. Frequently 4. Almost constantly 8. Unable to answer Pain Effect on Sleep: 1 Pain Interference with Therapy: 1 Pain Interference w/Day-to-Day: 1 Mental Status Patient Orientation: Person, Place, Time Transfers SCALE: Activities may be completed with or without assistive devices. 0-Diaiezrjkn-vevggyl completes the activity by him/herself with no assistance from a helper. 5-Set-up or Clean-up Assistance-helper sets up or cleans up; patient completes activity. Dexter assists only prior to or following the activity. 4-Supervision or Touching Assistance-helper provides verbal cues and/or touching/steadying and/or contact guard assistance as patient completes activity. Assistance may be provided throughout the activity or intermittently. 3-Partial/Moderate Assistance-helper does LESS THAN HALF the effort. Dexter lifts, holds or supports trunk or limbs, but provides less than half the effort. 2-Substantial/Maximal Assistance-helper does MORE THAN HALF the effort. Dexter lifts or holds trunk or limbs and provides more than half the effort. 8-Zvgavwbbv-comwss does ALL the effort. Patient does none of the effort to complete the activity. Or, the assistance of 2 or more helpers is required for the patient to complete the activity. If activity was not attempted, code reason: 7-Patient Refused. 9-Not Applicable-not attempted and the patient did not perform the activity before the current illness, exacerbation or injury. 10-Not Attempted due to Environmental Limitations-(lack of equipment, weather restraints, etc.). 88-Not Attempted due to Medical Conditions or Safety Concerns. Sit to Lying (QC): 6 Lying to Sitting/Side of Bed(Q: 6 Sit to Stand (QC): 3 Pt independent with bed mobility. MIN lifting assistance with sit to stand transfers. Weight Bearing Weight Bearing/Tolerated Weight Bearing/Tolerated Gait Training Does the Patient Walk?: Yes Distance: 200, 100, 50 Walk 10 feet (QC): 3 Walk 50 ft with 2 Turns(QC): 3 Walk 150 ft (QC): 3 Gait Persons Needed: 1 Gait Assistive Device: FWW Pt MIN assist with ambulation using FWW. Pt occasionally loses control of affected LE and displays LOB requiring steadying assistance from LOG HANDLING EQUIPMENT OPERATOR. Requires VC/TCs for exaggerated heel strike during ambulation. Ambulated 350 feet total. Wheelchair Training Does the Pt Use a Wheelchair?: No Treatments Standing exercises: heel/toe raises, hamstring curls, step-ups, forward heel taps, step-ups sideways x 20 each Seated exercises: marches, hip abd/add x 20 each Balance training: AirX 1' normal stance. Tandem stance 30 seconds x 2. Assessment Current Status: Good Progress Pt displays good muscle strength throughout treatment. Pt demonstrates muscle fatigue with therapeutic exercises and gait training. Required frequent reminders to correct gait pattern and improve heel strike. Continue to progress pt as tolerated per POC to increase strength, endurance, and functional ability. PT Mcfp Goals Design Verification Engineer Goals PT Mcfp Goals Time Frame: Jun 10, 2022 Roll Left & Right (QC): 6 Sit to Lying (QC): 6 Lying-Sitting on Side/Bed(QC): 6 Sit to Stand (QC): 6 Chair/Ybw-xy-Zwply Xfer(QC): 6 (Patient to perform stand<>pivot transfers with FWW mod (I) with correct hand placement 100% of time.) Toilet Transfer (QC): 6 Car Transfer (QC): 5 Does the Patient Walk: Yes Walk 10 feet (QC): 6 Walk 50ft with 2 Turns (QC): 6 Walk 150 ft (QC): 6 (Patient will ambulate 200' mod (I) with FWW with improved stepping strategy (R) LE.) Walking 10ft on Uneven Surface: 6 (With FWW) 1 Step (curb) (QC): 6 (with FWW) 4 Steps (QC): 5 ((B) handrails) 12 Steps (QC): 5 ((B) handrails) Picking up an Object (QC): 6 Does the Pt use WC or Scooter?: No Wheel 50 feet with 2 turns (QC: 9 Type: N/A Wheel 150 feet: 9 Type: N/A PT Plan Treatment/Plan Treatment Plan: Continue Plan of Care Treatment Plan: Education, Functional Activity Pelon, Functional Strength, Group Therapy, Gait, Safety, Therapeutic Exercise, Transfers, Other Treatment Duration: Jun 10, 2022 Frequency: At least 5 of 7 days/Wk (IRF) Estimated Hrs Per Day: 1.5 hours per day Patient and/or Family Agrees t: Yes Time Time In: 0900 Time Out: 1000 DATE: May 21, 2022 Total Billed Treatment Time: 60 Total Billed Treatment 1 visit GT 1x FA 1x EX 2x Independent treatment time: 60 [place] ROSALES PTA May 21, 2022 12:46
--- NOTE | 2022-05-21 13:27 | Occupational Ther Daily Note ---
OT Current Status-Daily Note Subjective Pt sleeping in bed, woke to name. Pt agrees to therapy. No c/o pain. Mental Status/Objective Patient Orientation: Person, Place, Time, Situation ADL-Treatment After set up, pt able to complete lower body dressing and footwear by self. Pt then ambulated using FWW to bathroom, with cues for foot placement. Independent with toileting. Standing at sink, independent with oral care. Therapy Code Descriptions/Definitions Functional [place] Measure: 0=Not Assessed/NA 4=Minimal Assistance 1=Total Assistance 5=Supervision or Setup 2=Maximal Assistance 6=Modified [place] 3=Moderate Assistance 7=Complete IndependenceSCALE: Activities may be completed with or without assistive devices. 3-Bpkwpzkcdi-acibkog completes the activity by him/herself with no assistance from a helper. 5-Set-up or Clean-up Assistance-helper sets up or cleans up; patient completes activity. [place] assists only prior to or following the activity. 4-Supervision or Touching Assistance-helper provides verbal cues and/or touching/steadying and/or contact guard assistance as patient completes activity. Assistance may be provided throughout the activity or intermittently. 3-Partial/Moderate Assistance-helper does LESS THAN HALF the effort. [place] lifts, holds or supports trunk or limbs, but provides less than half the effort. 2-Substantial/Maximal Assistance-helper does MORE THAN HALF the effort. [place] lifts or holds trunk or limbs and provides more than half the effort. 8-Innnogcll-fjclxe does ALL the effort. Patient does none of the effort to complete the activity. Or, the assistance of 2 or more helpers is required for the patient to complete the activity. If activity was not attempted, code reason: 7-Patient Refused. 9-Not Applicable-not attempted and the patient did not perform the activity befo re the current illness, exacerbation or injury. 10-Not Attempted due to Environmental Limitations-(lack of equipment, weather re straints, etc.). 88-Not Attempted due to Medical Conditions or Safety Concerns. Oral Hygiene (QC): 6 Lower Body Dressing (QC): 5 On/Off Footwear: 5 Toileting Hygiene (QC): 6 Toilet Transfer (QC): 6 Other Treatment Pt ambulated using FWW to therapy gym. Pt requires cues for correct foot placement during ambulation. Pt then completed arm bike for 8 min at 20 lee resistance-2 min forward, 1 min backward. Pt then completed wrist flex/ext/uln dev/rad dev with 2# wt 2 sets 10 reps. After session, pt sitting on EOB with call light and phone in reach. All needs met in room. OT Short Term Goals Short Term Goals Time Frame: May 31, 2022 Shower/bathe self: 5 Upper body dressin Lower body dressin Putting on/taking off footwear: 5 OT Correction Goals Correction Goals Time Frame: Jun 11, 2022 Acute change in mental status: 0 Inattention: 0 Disorganized thinkin Altered level of consciousness: 0 Eating (QC): 6 Oral Hygiene (QC): 6 Toileting Hygiene (QC): 6 Shower/Bathe Self (QC): 6 Upper Body Dressing (QC): 6 Lower Body Dressing (QC): 6 On/Off Footwear (QC): 6 Additional Goals: 1-Demonstrate ADL Tasks, 2-Verbalize Understanding, 3- ImproveStrength/[place] 1=Demonstrate adherence to instructed precautions during ADL tasks. 2=Patient will verbalize/demonstrate understanding of assistive devices/modifications for ADL. 3=Patient will improve strength/tolerance for activity to enable patient to perform ADL's. OT Education/Plan Problem List/Assessment Assessment: Decreased Activ Tolerance, Impaired Funct Balance, Impaired Self- Care Skills Discharge Recommendations Plan/Recommendations: Continue POC Treatment Plan/Plan of Care Patient would benefit from OT for education, treatment and training to promote independence in ADL's, mobility, safety and/or upper extremity function for ADL's. Plan of Care: ADL Retraining, Functional Mobility, Group Exercise/Act as Ind, UE Funct Exercise/Act, UE Neuromus Re-Ed/Coord Treatment Duration: Jun 11, 2022 Frequency: At least 5 of 7 days/Wk (IRF) Estimated Hrs Per Day: .25 hour per day Agreement: Yes Rehab Potential: Good Time Start Time: 11:00 Stop Time: 12:00 DATE: May 21, 2022 Total Time Billed (hr/min): 60 Billed Treatment Time 1 visit-ADL 2 (30 min) EX 2 (30 min) MITCHEL BUENROSTRO May 21, 2022 13:27
--- NOTE | 2022-05-21 13:31 | Occupational Ther Daily Note ---
OT Current Status-Daily Note Subjective Pt alert, eating lunch sitting EOB. Pt agrees to therapy. No c/o pain. Mental Status/Objective Patient Orientation: Person, Place, Time, Situation Attachments: IV ADL-Treatment Independent with toileting and eating. Therapy Code Descriptions/Definitions Functional [place] Measure: 0=Not Assessed/NA 4=Minimal Assistance 1=Total Assistance 5=Supervision or Setup 2=Maximal Assistance 6=Modified [place] 3=Moderate Assistance 7=Complete IndependenceSCALE: Activities may be completed with or without assistive devices. 6-Khcobngczk-jxzjppk completes the activity by him/herself with no assistance from a helper. 5-Set-up or Clean-up Assistance-helper sets up or cleans up; patient completes activity. [place] assists only prior to or following the activity. 4-Supervision or Touching Assistance-helper provides verbal cues and/or touching/steadying and/or contact guard assistance as patient completes activity. Assistance may be provided throughout the activity or intermittently. 3-Partial/Moderate Assistance-helper does LESS THAN HALF the effort. [place] lifts, holds or supports trunk or limbs, but provides less than half the effort. 2-Substantial/Maximal Assistance-helper does MORE THAN HALF the effort. [place] lifts or holds trunk or limbs and provides more than half the effort. 6-Czkbmuzch-oadsir does ALL the effort. Patient does none of the effort to complete the activity. Or, the assistance of 2 or more helpers is required for the patient to complete the activity. If activity was not attempted, code reason: 7-Patient Refused. 9-Not Applicable-not attempted and the patient did not perform the activity before the current illness, exacerbation or injury. 10-Not Attempted due to Environmental Limitations-(lack of equipment, weather restraints, etc.). 88-Not Attempted due to Medical Conditions or Safety Concerns. Eating (QC): 6 Toileting Hygiene (QC): 6 Other Treatment Pt given HEP for B UE theraband exercises and therapy foam for legal financial specialist/pinch. Pt verbalized understanding of each exercises though did not complete. Skilled instruction for correct technique and modifications required. Will continue to work with pt on independence of HEP. After session, pt sitting EOB with call light/phone in reach. All needs met in room. OT Short Term Goals Short Term Goals Time Frame: May 31, 2022 Shower/bathe self: 5 Upper body dressin Lower body dressin Putting on/taking off footwear: 5 OT Fpc Goals Fpc Goals Time Frame: Jun 11, 2022 Acute change in mental status: 0 Inattention: 0 Disorganized thinkin Altered level of consciousness: 0 Eating (QC): 6 Oral Hygiene (QC): 6 Toileting Hygiene (QC): 6 Shower/Bathe Self (QC): 6 Upper Body Dressing (QC): 6 Lower Body Dressing (QC): 6 On/Off Footwear (QC): 6 Additional Goals: 1-Demonstrate ADL Tasks, 2-Verbalize Understanding, 3- ImproveStrength/[place] 1=Demonstrate adherence to instructed precautions during ADL tasks. 2=Patient will verbalize/demonstrate understanding of assistive devices/modifications for ADL. 3=Patient will improve strength/tolerance for activity to enable patient to perform ADL's. OT Education/Plan Problem List/Assessment Assessment: Decreased Activ Tolerance, Impaired Funct Balance Discharge Recommendations Plan/Recommendations: Continue POC Treatment Plan/Plan of Care Patient would benefit from OT for education, treatment and training to promote independence in ADL's, mobility, safety and/or upper extremity function for ADL's. Plan of Care: ADL Retraining, Functional Mobility, Group Exercise/Act as Ind, UE Funct Exercise/Act, UE Neuromus Re-Ed/Coord Treatment Duration: Jun 11, 2022 Frequency: At least 5 of 7 days/Wk (IRF) Estimated Hrs Per Day: .25 hour per day Agreement: Yes Rehab Potential: Good Time Start Time: 12:50 Stop Time: 13:20 DATE: May 21, 2022 Total Time Billed (hr/min): 30 Billed Treatment Time 1 visit-ADL 1 (20 min) EX 1 (10 min) MITCHEL BUENROSTRO May 21, 2022 13:31
--- NOTE | 2022-05-21 15:14 | Physical Therapy Daily Note ---
PT Daily Note-Current Subjective Pt found seated on EOB upon entry. Agreed to PT. States that she feels like she could fall asleep at any time if she tried. Reports that she is not having any pain. Pain Section J - Health Conditions 1. Rarely or not at all 2. Occasionally 3. Frequently 4. Almost constantly 8. Unable to answer Pain Effect on Sleep: 1 Pain Interference with Therapy: 1 Pain Interference w/Day-to-Day: 1 Mental Status Patient Orientation: Person, Place, Time Transfers SCALE: Activities may be completed with or without assistive devices. 1-Mhirbgsetf-hksjnkm completes the activity by him/herself with no assistance from a helper. 5-Set-up or Clean-up Assistance-helper sets up or cleans up; patient completes activity. [place] assists only prior to or following the activity. 4-Supervision or Touching Assistance-helper provides verbal cues and/or touching/steadying and/or contact guard assistance as patient completes activity. Assistance may be provided throughout the activity or intermittently. 3-Partial/Moderate Assistance-helper does LESS THAN HALF the effort. [place] lifts, holds or supports trunk or limbs, but provides less than half the effort. 2-Substantial/Maximal Assistance-helper does MORE THAN HALF the effort. [place] lifts or holds trunk or limbs and provides more than half the effort. 2-Ywfviocle-nopowr does ALL the effort. Patient does none of the effort to complete the activity. Or, the assistance of 2 or more helpers is required for the patient to complete the activity. If activity was not attempted, code reason: 7-Patient Refused. 9-Not Applicable-not attempted and the patient did not perform the activity before the current illness, exacerbation or injury. 10-Not Attempted due to Environmental Limitations-(lack of equipment, weather restraints, etc.). 88-Not Attempted due to Medical Conditions or Safety Concerns. Sit to Lying (QC): 6 Lying to Sitting/Side of Bed(Q: 6 Sit to Stand (QC): 4 Pt CGA with sit to stand transfers for safety. Independent with sit to stands and bed mobility. Required VCs for proper hand placement to complete sit to stand transfers. Weight Bearing Weight Bearing/Tolerated Weight Bearing/Tolerated Gait Training Does the Patient Walk?: Yes Distance: 150, 150, 50 Walk 10 feet (QC): 4 Walk 50 ft with 2 Turns(QC): 4 Walk 150 ft (QC): 4 Gait Persons Needed: 1 Gait Assistive Device: FWW Pt CGA with use of FWW during ambulation. Pt displays slight loss of balance 1x during gait training and required steadying assistance from GL ACCOUNTANT. Required short seated rest breaks during ambulation. Ambulated 350 feet total. Wheelchair Training Does the Pt Use a Wheelchair?: No Exercises NuStep Minutes: 8 NuStep Workload: 4 Assessment Current Status: Good Progress Pt displays good muscle strength and endurance throughout visit. Demonstrated improved balance during gait training. Required short seated rest breaks throughout visit due to muscle fatigue. Displays improved heel strike during gait cycle and required minimal VCs. Continue to progress pt as tolerated per POC to increase strength, gait cycle, and endurance. PT Retirement Goals Switch Technician Goals PT Retirement Goals Time Frame: Jun 10, 2022 Roll Left & Right (QC): 6 Sit to Lying (QC): 6 Lying-Sitting on Side/Bed(QC): 6 Sit to Stand (QC): 6 Chair/Grn-vk-Aesos Xfer(QC): 6 (Patient to perform stand<>pivot transfers with FWW mod (I) with correct hand placement 100% of time.) Toilet Transfer (QC): 6 Car Transfer (QC): 5 Does the Patient Walk: Yes Walk 10 feet (QC): 6 Walk 50ft with 2 Turns (QC): 6 Walk 150 ft (QC): 6 (Patient will ambulate 200' mod (I) with FWW with improved stepping strategy (R) LE.) Walking 10ft on Uneven Surface: 6 (With FWW) 1 Step (curb) (QC): 6 (with FWW) 4 Steps (QC): 5 ((B) handrails) 12 Steps (QC): 5 ((B) handrails) Picking up an Object (QC): 6 Does the Pt use WC or Scooter?: No Wheel 50 feet with 2 turns (QC: 9 Type: N/A Wheel 150 feet: 9 Type: N/A PT Plan Treatment/Plan Treatment Plan: Continue Plan of Care Treatment Plan: Education, Functional Activity [place], Functional Strength, Group Therapy, Gait, Safety, Therapeutic Exercise, Transfers, Other Treatment Duration: Jun 10, 2022 Frequency: At least 5 of 7 days/Wk (IRF) Estimated Hrs Per Day: 1.5 hours per day Patient and/or Family Agrees t: Yes Time Time In: 1330 Time Out: 1400 DATE: May 21, 2022 Total Billed Treatment Time: 30 Total Billed Treatment 1 visit GT 1x EX 1x [place] ROSALES PTA May 21, 2022 15:14
[2022-05-21 19:45] VITALS: BP 122/73
--- NOTE | 2022-05-22 05:42 | PM&R Progress Note ---
Subjective HPI/CC On Admission Date Seen by Provider: May 22, 2022 Time Seen by Provider: 12:00 Subjective/Events-last exam 05/22/2022: No major issues Improved ambulation Improved weakness deficit No falls 05/21/2022: Doing well Participation is good No major concerns BP stable Labs reviewed Review of Systems General: Fatigue, Malaise Neurological: Weakness Objective Exam Vital Signs Vital Signs Date Time Temp Pulse Resp B/P (MAP) Pulse Ox O2 Delivery O2 Flow Rate FiO2 05/22/22 19:26 36.9 71 16 110/70 (83) 97 Room Air Capillary Refill : General Appearance: No Apparent Distress, WD/WN, Chronically ill, Thin HEENT: PERRL/EOMI, Normal ENT Inspection, Pharynx Normal Neck: Full Range of Motion, Normal Inspection, Non Tender, Supple, Carotid Bruit Respiratory: Chest Non Tender, Lungs Clear, No Accessory Muscle Use, No Respiratory Distress, Decreased Breath Sounds Cardiovascular: Regular Rate, Rhythm, No Edema, No Gallop, No JVD, No Murmur, Normal Peripheral Pulses Gastrointestinal: Normal Bowel Sounds, No Organomegaly, No Pulsatile Mass, Non Tender, Soft Back: Normal Inspection, No CVA Tenderness, No Vertebral Tenderness Extremity: Normal Capillary Refill, Normal Inspection, Normal Range of Motion, Non Tender, No Calf Tenderness, No Pedal Edema Neurologic/Psychiatric: Alert, Oriented x3, commercial food instructor II-XII Norm as Tested, Abnormal Gait, Depressed Affect, Motor Weakness (right sided weakness 3/5) Skin: Normal Color, Warm/Dry Lymphatic: No Adenopathy Results/Procedures Lab Patient resulted labs reviewed. FIM Transfers Therapy Code Descriptions/Definitions Functional [place] Measure: 0=Not Assessed/NA 4=Minimal Assistance 1=Total Assistance 5=Supervision or Setup 2=Maximal Assistance 6=Modified [place] 3=Moderate Assistance 7=Complete IndependenceSCALE: Activities may be completed with or without assistive devices. 3-Mqdniwnrep-mhxhnzy completes the activity by him/herself with no assistance from a helper. 5-Set-up or Clean-up Assistance-helper sets up or cleans up; patient completes activity. [place] assists only prior to or following the activity. 4-Supervision or Touching Assistance-helper provides verbal cues and/or touching/steadying and/or contact guard assistance as patient completes activity. Assistance may be provided throughout the activity or intermittently. 3-Partial/Moderate Assistance-helper does LESS THAN HALF the effort. [place] lifts, holds or supports trunk or limbs, but provides less than half the effort. 2-Substantial/Maximal Assistance-helper does MORE THAN HALF the effort. [place] lifts or holds trunk or limbs and provides more than half the effort. 3-Uruqrsqga-enqwwn does ALL the effort. Patient does none of the effort to complete the activity. Or, the assistance of 2 or more helpers is required for the patient to complete the activity. If activity was not attempted, code reason: 7-Patient Refused. 9-Not Applicable-not attempted and the patient did not perform the activity before the current illness, exacerbation or injury. 10-Not Attempted due to Environmental Limitations-(lack of equipment, weather restraints, etc.). 88-Not Attempted due to Medical Conditions or Safety Concerns. Roll Left to Right (QC): 6 Sit to Lying (QC): 6 Sit to Stand (QC): 4 Chair/Spw-hj-Vrqmr Xfer(QC): 3 (MIn (A) with FWW, ataxic (R) LE) Car Transfer (QC): 3 (impulsivity noted, min (A)) Gait Training Does the Patient Walk?: Yes Distance: 150, 150, 50 Walk 10 feet (QC): 4 Walk 50 ft with 2 Turns(QC): 4 Walk 150 ft (QC): 4 Walking 10ft/uneven surface-QC: 3 (with FWW) Gait Persons Needed: 1 Gait Assistive Device: FWW Wheelchair Training Does the Pt Use a Wheelchair?: No Wheel 50 ft with 2 turns (QC): 9 Wheel 150 ft (QC): 9 Type of Wheelchair: N/A Stair Training #of Steps: 5 (x 2) 1 Step (curb) (QC): 3 (Min (A) with v.c. for walker placement and LE sequencing.) 4 Steps (QC): 3 (Min (A) with (B) handrails and v.c. for correct sequencing of LE's, step-to pattern) 12 Steps (QC): 10 Balance Picking up an Object (QC): 4 (min (A), patient quick and impulsive requiring assist to maintain position when cued to perform task) ADL-Treatment Eating (QC): 6 Oral Hygiene (QC): 6 Shower/Bathe Self (QC): 4 (CGA in stand. Pt able to wash/dry all parts.) Upper Body Dressing (QC): 6 (IND doffing/donning sweatshirt.) Lower Body Dressing (QC): 5 On/Off Footwear (QC): 5 Toileting Hygiene (QC): 6 Toilet Transfer (QC): 6 Assessment/Plan Assessment and Plan Assess & Plan/Chief Complaint Assessment: CVA with right sided weakness HTN HLP Smoker Plan: Monitor closely PT OT Monitor BP 05/21/2022: Monitor closely 05/22/2022: Nicotine patch Monitor BP (1) CVA (cerebral vascular accident) ALONZO ANGEL DO May 22, 2022 05:42
[2022-05-22 07:30] VITALS: BP 104/67
[2022-05-22] MEDS: hydrALAZINE (APRESOLINE) 25 MG TAB PO SCH ×2 (09:16→20:49)
[2022-05-22] MEDS: ASPIRIN E.C. 81 MG (ECOTRIN) TAB PO SCH (09:16)
[2022-05-22] MEDS: FLUoxetine HCL 20 MG (PROzac) CAP PO SCH (09:16)
[2022-05-22] MEDS: lisINopril 20 MG (PRINIVIL) TABLET PO SCH (09:16)
[2022-05-22] MEDS: NICOTINE 21 MG (NICODERM) PATCH TD SCH (09:16)
[2022-05-22] MEDS: amLODIPine 5 MG (NORVASC) TAB PO SCH (09:16)
[2022-05-22] MEDS: SENNA W/DOCUSATE (SENOKOT S) TABLET PO SCH ×2 (09:18→20:50)
[2022-05-22] MEDS: DOCUSATE SODIUM 100 MG (COLACE) CAP PO SCH ×2 (09:18→20:49)
[2022-05-22] MEDS: polyethylene glycoL POWDER 17 GM (MIRALAX) PACK PO SCH ×2 (09:18→20:49)
[2022-05-22] MEDS: NICOTINE PATCH REMOVAL TP SCH (09:18)
--- NOTE | 2022-05-22 13:04 | Physical Therapy Daily Note ---
PT Daily Note-Current Pain Section J - Health Conditions 1. Rarely or not at all 2. Occasionally 3. Frequently 4. Almost constantly 8. Unable to answer Pain Effect on Sleep: 1 Pain Interference with Therapy: 1 Pain Interference w/Day-to-Day: 1 Transfers SCALE: Activities may be completed with or without assistive devices. 6-Higpgadhmb-odvspnn completes the activity by him/herself with no assistance from a helper. 5-Set-up or Clean-up Assistance-helper sets up or cleans up; patient completes activity. [place] assists only prior to or following the activity. 4-Supervision or Touching Assistance-helper provides verbal cues and/or touching/steadying and/or contact guard assistance as patient completes activity. Assistance may be provided throughout the activity or intermittently. 3-Partial/Moderate Assistance-helper does LESS THAN HALF the effort. [place] lifts, holds or supports trunk or limbs, but provides less than half the effort. 2-Substantial/Maximal Assistance-helper does MORE THAN HALF the effort. [place] lifts or holds trunk or limbs and provides more than half the effort. 8-Vkfxaypgr-cnfxzg does ALL the effort. Patient does none of the effort to complete the activity. Or, the assistance of 2 or more helpers is required for the patient to complete the activity. If activity was not attempted, code reason: 7-Patient Refused. 9-Not Applicable-not attempted and the patient did not perform the activity before the current illness, exacerbation or injury. 10-Not Attempted due to Environmental Limitations-(lack of equipment, weather restraints, etc.). 88-Not Attempted due to Medical Conditions or Safety Concerns. Weight Bearing Weight Bearing/Tolerated Weight Bearing/Tolerated PT Pesticide Applicator Goals Shelter Goals PT Shelter Goals Time Frame: Jun 10, 2022 Roll Left & Right (QC): 6 Sit to Lying (QC): 6 Lying-Sitting on Side/Bed(QC): 6 Sit to Stand (QC): 6 Chair/Orl-yh-Gszxq Xfer(QC): 6 (Patient to perform stand<>pivot transfers with FWW mod (I) with correct hand placement 100% of time.) Toilet Transfer (QC): 6 Car Transfer (QC): 5 Does the Patient Walk: Yes Walk 10 feet (QC): 6 Walk 50ft with 2 Turns (QC): 6 Walk 150 ft (QC): 6 (Patient will ambulate 200' mod (I) with FWW with improved stepping strategy (R) LE.) Walking 10ft on Uneven Surface: 6 (With FWW) 1 Step (curb) (QC): 6 (with FWW) 4 Steps (QC): 5 ((B) handrails) 12 Steps (QC): 5 ((B) handrails) Picking up an Object (QC): 6 Does the Pt use WC or Scooter?: No Wheel 50 feet with 2 turns (QC: 9 Type: N/A Wheel 150 feet: 9 Type: N/A PT Plan Treatment/Plan Treatment Plan: Continue Plan of Care Treatment Plan: Education, Functional Activity [place], Functional Strength, Group Therapy, Gait, Safety, Therapeutic Exercise, Transfers, Other Treatment Duration: Jun 10, 2022 Frequency: At least 5 of 7 days/Wk (IRF) Estimated Hrs Per Day: 1.5 hours per day Patient and/or Family Agrees t: Yes Time Time In: 1245 Time Out: 1258 DATE: May 22, 2022 Total Billed Treatment Time: 13 Total Billed Treatment Visit, Gait CHAPIN VALDES PT May 22, 2022 13:04
[2022-05-22 19:26] VITALS: BP 110/70
--- NOTE | 2022-05-23 05:45 | PM&R Progress Note ---
Subjective HPI/CC On Admission Date Seen by Provider: May 23, 2022 Time Seen by Provider: 08:30 Subjective/Events-last exam 05/23/2022: Improved overall Moving well No pain No BP issues 05/22/2022: No major issues Improved ambulation Improved weakness deficit No falls 05/21/2022: Doing well Participation is good No major concerns BP stable Labs reviewed Review of Systems General: Fatigue, Malaise Neurological: Weakness Objective Exam Vital Signs Vital Signs Date Time Temp Pulse Resp B/P (MAP) Pulse Ox O2 Delivery O2 Flow Rate FiO2 05/23/22 09:12 Room Air 05/23/22 07:26 36.7 62 16 124/72 (89) 95 Capillary Refill : General Appearance: No Apparent Distress, WD/WN, Chronically ill, Thin HEENT: PERRL/EOMI, Normal ENT Inspection, Pharynx Normal Neck: Full Range of Motion, Normal Inspection, Non Tender, Supple, Carotid Bruit Respiratory: Chest Non Tender, Lungs Clear, No Accessory Muscle Use, No Respiratory Distress, Decreased Breath Sounds Cardiovascular: Regular Rate, Rhythm, No Edema, No Gallop, No JVD, No Murmur, Normal Peripheral Pulses Gastrointestinal: Normal Bowel Sounds, No Organomegaly, No Pulsatile Mass, Non Tender, Soft Back: Normal Inspection, No CVA Tenderness, No Vertebral Tenderness Extremity: Normal Capillary Refill, Normal Inspection, Normal Range of Motion, Non Tender, No Calf Tenderness, No Pedal Edema Neurologic/Psychiatric: Alert, Oriented x3, family service worker II-XII Norm as Tested, Abnormal Gait, Depressed Affect, Motor Weakness (right sided weakness 3/5) Skin: Normal Color, Warm/Dry Lymphatic: No Adenopathy Results/Procedures Lab Patient resulted labs reviewed. FIM Transfers Therapy Code Descriptions/Definitions Functional [place] Measure: 0=Not Assessed/NA 4=Minimal Assistance 1=Total Assistance 5=Supervision or Setup 2=Maximal Assistance 6=Modified [place] 3=Moderate Assistance 7=Complete IndependenceSCALE: Activities may be completed with or without assistive devices. 4-Wkgoyqrefr-muqisxq completes the activity by him/herself with no assistance from a helper. 5-Set-up or Clean-up Assistance-helper sets up or cleans up; patient completes activity. [place] assists only prior to or following the activity. 4-Supervision or Touching Assistance-helper provides verbal cues and/or touching/steadying and/or contact guard assistance as patient completes activity. Assistance may be provided throughout the activity or intermittently. 3-Partial/Moderate Assistance-helper does LESS THAN HALF the effort. [place] lifts, holds or supports trunk or limbs, but provides less than half the effort. 2-Substantial/Maximal Assistance-helper does MORE THAN HALF the effort. [place] lifts or holds trunk or limbs and provides more than half the effort. 2-Baapzpshu-nduqim does ALL the effort. Patient does none of the effort to complete the activity. Or, the assistance of 2 or more helpers is required for the patient to complete the activity. If activity was not attempted, code reason: 7-Patient Refused. 9-Not Applicable-not attempted and the patient did not perform the activity before the current illness, exacerbation or injury. 10-Not Attempted due to Environmental Limitations-(lack of equipment, weather restraints, etc.). 88-Not Attempted due to Medical Conditions or Safety Concerns. Roll Left to Right (QC): 6 Sit to Lying (QC): 6 Sit to Stand (QC): 4 Chair/Ocm-hj-Liexr Xfer(QC): 3 (MIn (A) with FWW, ataxic (R) LE) Car Transfer (QC): 3 (impulsivity noted, min (A)) Gait Training Does the Patient Walk?: Yes Distance: 150, 150, 50 Walk 10 feet (QC): 4 Walk 50 ft with 2 Turns(QC): 4 Walk 150 ft (QC): 4 Walking 10ft/uneven surface-QC: 3 (with FWW) Gait Persons Needed: 1 Gait Assistive Device: FWW Wheelchair Training Does the Pt Use a Wheelchair?: No Wheel 50 ft with 2 turns (QC): 9 Wheel 150 ft (QC): 9 Type of Wheelchair: N/A Stair Training #of Steps: 5 (x 2) 1 Step (curb) (QC): 3 (Min (A) with v.c. for walker placement and LE sequencing.) 4 Steps (QC): 3 (Min (A) with (B) handrails and v.c. for correct sequencing of LE's, step-to pattern) 12 Steps (QC): 10 Balance Picking up an Object (QC): 4 (min (A), patient quick and impulsive requiring assist to maintain position when cued to perform task) ADL-Treatment Eating (QC): 6 Oral Hygiene (QC): 6 Shower/Bathe Self (QC): 4 (CGA in stand. Pt able to wash/dry all parts.) Upper Body Dressing (QC): 6 (IND doffing/donning sweatshirt.) Lower Body Dressing (QC): 5 On/Off Footwear (QC): 5 Toileting Hygiene (QC): 6 Toilet Transfer (QC): 6 Assessment/Plan Assessment and Plan Assess & Plan/Chief Complaint Assessment: CVA with right sided weakness HTN HLP Smoker Plan: Monitor closely PT OT Monitor BP 05/21/2022: Monitor closely 05/22/2022: Nicotine patch Monitor BP 05/23/2022: Monitor BP (1) CVA (cerebral vascular accident) ALONZO ANGEL 26, 2023 05:45
[2022-05-23 07:26] VITALS: BP 124/72
[2022-05-23] MEDS: amLODIPine 5 MG (NORVASC) TAB PO SCH (09:54)
[2022-05-23] MEDS: ASPIRIN E.C. 81 MG (ECOTRIN) TAB PO SCH (09:54)
[2022-05-23] MEDS: lisINopril 20 MG (PRINIVIL) TABLET PO SCH (09:54)
[2022-05-23] MEDS: hydrALAZINE (APRESOLINE) 25 MG TAB PO SCH ×2 (09:55→22:00)
[2022-05-23] MEDS: FLUoxetine HCL 20 MG (PROzac) CAP PO SCH (09:55)
[2022-05-23] MEDS: NICOTINE 21 MG (NICODERM) PATCH TD SCH (09:55)
[2022-05-23] MEDS: NICOTINE PATCH REMOVAL TP SCH (09:55)
[2022-05-23] MEDS: polyethylene glycoL POWDER 17 GM (MIRALAX) PACK PO SCH ×2 (09:55→22:00)
[2022-05-23] MEDS: SENNA W/DOCUSATE (SENOKOT S) TABLET PO SCH ×2 (11:28→22:00)
[2022-05-23] MEDS: DOCUSATE SODIUM 100 MG (COLACE) CAP PO SCH ×2 (11:28→22:00)
[2022-05-23 20:00] VITALS: BP 113/63
--- NOTE | 2022-05-24 05:28 | PM&R Progress Note ---
Subjective HPI/CC On Admission Date Seen by Provider: May 24, 2022 Time Seen by Provider: 10:00 Subjective/Events-last exam 05/24/2022: Improved overall Balance is improved Using walker 05/23/2022: Improved overall Moving well No pain No BP issues 05/22/2022: No major issues Improved ambulation Improved weakness deficit No falls 05/21/2022: Doing well Participation is good No major concerns BP stable Labs reviewed Review of Systems General: Fatigue, Malaise Objective Exam Vital Signs Vital Signs Date Time Temp Pulse Resp B/P (MAP) Pulse Ox O2 Delivery O2 Flow Rate FiO2 05/24/22 20:40 Room Air 05/24/22 20:33 36.4 63 18 142/71 (94) 95 Capillary Refill : General Appearance: No Apparent Distress, WD/WN, Chronically ill, Thin HEENT: PERRL/EOMI, Normal ENT Inspection, Pharynx Normal Neck: Full Range of Motion, Normal Inspection, Non Tender, Supple, Carotid Bruit Respiratory: Chest Non Tender, Lungs Clear, No Accessory Muscle Use, No Respiratory Distress, Decreased Breath Sounds Cardiovascular: Regular Rate, Rhythm, No Edema, No Gallop, No JVD, No Murmur, Normal Peripheral Pulses Gastrointestinal: Normal Bowel Sounds, No Organomegaly, No Pulsatile Mass, Non Tender, Soft Back: Normal Inspection, No CVA Tenderness, No Vertebral Tenderness Extremity: Normal Capillary Refill, Normal Inspection, Normal Range of Motion, Non Tender, No Calf Tenderness, No Pedal Edema Neurologic/Psychiatric: Alert, Oriented x3, wellness program coordinator II-XII Norm as Tested, Abnormal Gait, Depressed Affect, Motor Weakness (right sided weakness 3/5) Skin: Normal Color, Warm/Dry Lymphatic: No Adenopathy Results/Procedures Lab Laboratory Tests 05/24/22 05:26 Patient resulted labs reviewed. FIM Transfers Therapy Code Descriptions/Definitions Functional [place] Measure: 0=Not Assessed/NA 4=Minimal Assistance 1=Total Assistance 5=Supervision or Setup 2=Maximal Assistance 6=Modified [place] 3=Moderate Assistance 7=Complete IndependenceSCALE: Activities may be completed with or without assistive devices. 1-Wbkrddecoj-cjnbbbf completes the activity by him/herself with no assistance from a helper. 5-Set-up or Clean-up Assistance-helper sets up or cleans up; patient completes activity. [place] assists only prior to or following the activity. 4-Supervision or Touching Assistance-helper provides verbal cues and/or touching/steadying and/or contact guard assistance as patient completes activity. Assistance may be provided throughout the activity or intermittently. 3-Partial/Moderate Assistance-helper does LESS THAN HALF the effort. [place] lifts, holds or supports trunk or limbs, but provides less than half the effort. 2-Substantial/Maximal Assistance-helper does MORE THAN HALF the effort. [place] lifts or holds trunk or limbs and provides more than half the effort. 5-Ytdjtjtjh-qiuzdh does ALL the effort. Patient does none of the effort to complete the activity. Or, the assistance of 2 or more helpers is required for the patient to complete the activity. If activity was not attempted, code reason: 7-Patient Refused. 9-Not Applicable-not attempted and the patient did not perform the activity before the current illness, exacerbation or injury. 10-Not Attempted due to Environmental Limitations-(lack of equipment, weather restraints, etc.). 88-Not Attempted due to Medical Conditions or Safety Concerns. Roll Left to Right (QC): 6 Sit to Lying (QC): 6 Sit to Stand (QC): 4 Chair/Xwe-rf-Sljhe Xfer(QC): 3 (MIn (A) with FWW, ataxic (R) LE) Car Transfer (QC): 3 (impulsivity noted, min (A)) Gait Training Does the Patient Walk?: Yes Distance: 150, 150, 50 Walk 10 feet (QC): 4 Walk 50 ft with 2 Turns(QC): 4 Walk 150 ft (QC): 4 Walking 10ft/uneven surface-QC: 3 (with FWW) Gait Persons Needed: 1 Gait Assistive Device: FWW Wheelchair Training Does the Pt Use a Wheelchair?: No Wheel 50 ft with 2 turns (QC): 9 Wheel 150 ft (QC): 9 Type of Wheelchair: N/A Stair Training #of Steps: 5 (x 2) 1 Step (curb) (QC): 3 (Min (A) with v.c. for walker placement and LE sequencing.) 4 Steps (QC): 3 (Min (A) with (B) handrails and v.c. for correct sequencing of LE's, step-to pattern) 12 Steps (QC): 10 Balance Picking up an Object (QC): 4 (min (A), patient quick and impulsive requiring assist to maintain position when cued to perform task) ADL-Treatment Eating (QC): 6 Oral Hygiene (QC): 6 Shower/Bathe Self (QC): 4 (CGA in stand. Pt able to wash/dry all parts.) Upper Body Dressing (QC): 6 (IND doffing/donning sweatshirt.) Lower Body Dressing (QC): 5 On/Off Footwear (QC): 5 Toileting Hygiene (QC): 6 Toilet Transfer (QC): 6 Assessment/Plan Assessment and Plan Assess & Plan/Chief Complaint Assessment: CVA with right sided weakness HTN HLP Smoker Plan: Monitor closely PT OT Monitor BP 05/21/2022: Monitor closely 05/22/2022: Nicotine patch Monitor BP 05/23/2022: Monitor BP 05/24/2022: Monitor closely (1) CVA (cerebral vascular accident) ALONZO ANGEL DO May 24, 2022 05:28
[2022-05-24 05:34] LABS: BASOPHILS # (AUTO) 0.1 10^3/uL (0.0-0.1); BASOPHILS % (AUTO) 2 % (0-10); EOSINOPHILS # (AUTO) 0.2 10^3/uL (0.0-0.3); EOSINOPHILS % (AUTO) 2 % (0-10); HEMATOCRIT 38 % (35-52); HEMOGLOBIN 12.4 g/dL (11.5-16.0); LYMPHOCYTES # (AUTO) 2.3 10^3/uL (1.0-4.0); LYMPHOCYTES % (AUTO) 36 % (12-44); MEAN CORPUSCULAR HEMOGLOBIN 31 pg (25-34); MEAN CORPUSCULAR HGB CONC 33 g/dL (32-36); MEAN CORPUSCULAR VOLUME 93 fL (80-99); MONOCYTES # (AUTO) 0.8 10^3/uL (0.0-1.0); MONOCYTES % (AUTO) 13 % (0-12); NEUTROPHILS # (AUTO) 3.1 10^3/uL (1.8-7.8); NEUTROPHILS % (AUTO) 47 % (42-75); PLATELET COUNT 210 10^3/uL (130-400); WHITE BLOOD COUNT 6.5 10^3/uL (4.3-11.0)
[2022-05-24 06:02] LABS: ALBUMIN 3.4 GM/DL (3.2-4.5); BILIRUBIN,TOTAL 0.3 MG/DL (0.1-1.0); CALCIUM 8.8 MG/DL (8.5-10.1); CREATININE SERUM 0.83 MG/DL (0.60-1.30); POTASSIUM 4.2 MMOL/L (3.6-5.0); TOTAL PROTEIN 5.8 GM/DL (6.4-8.2)
[2022-05-24 08:00] VITALS: BP 123/60
[2022-05-24] MEDS: amLODIPine 5 MG (NORVASC) TAB PO SCH (08:14)
[2022-05-24] MEDS: lisINopril 20 MG (PRINIVIL) TABLET PO SCH (08:14)
[2022-05-24] MEDS: hydrALAZINE (APRESOLINE) 25 MG TAB PO SCH ×2 (08:15→20:47)
[2022-05-24] MEDS: ASPIRIN E.C. 81 MG (ECOTRIN) TAB PO SCH (08:15)
[2022-05-24] MEDS: FLUoxetine HCL 20 MG (PROzac) CAP PO SCH (08:15)
[2022-05-24] MEDS: NICOTINE PATCH REMOVAL TP SCH (08:16)
[2022-05-24] MEDS: DOCUSATE SODIUM 100 MG (COLACE) CAP PO SCH ×2 (08:16→20:47)
[2022-05-24] MEDS: SENNA W/DOCUSATE (SENOKOT S) TABLET PO SCH ×2 (08:18→20:48)
[2022-05-24] MEDS: NICOTINE 21 MG (NICODERM) PATCH TD SCH (08:18)
[2022-05-24] MEDS: polyethylene glycoL POWDER 17 GM (MIRALAX) PACK PO SCH ×2 (08:18→20:48)
--- NOTE | 2022-05-24 09:48 | Physical Therapy Daily Note ---
PT Daily Note-Current Subjective Pt laying Supine in bed upon arrival. Pt agrees to PT. Pt reports not sleeping well last night due to not getting comfortable. Pain Location: No Pain Reported Section J - Health Conditions 1. Rarely or not at all 2. Occasionally 3. Frequently 4. Almost constantly 8. Unable to answer Pain Effect on Sleep: 1 Pain Interference with Therapy: 1 Pain Interference w/Day-to-Day: 1 Mental Status Patient Orientation: Person, Place, Time, Situation Attachments: Other-See Comments (AFO for R LE) Transfers SCALE: Activities may be completed with or without assistive devices. 9-Knksmbnmsz-fedjasc completes the activity by him/herself with no assistance from a helper. 5-Set-up or Clean-up Assistance-helper sets up or cleans up; patient completes activity. [place] assists only prior to or following the activity. 4-Supervision or Touching Assistance-helper provides verbal cues and/or touching/steadying and/or contact guard assistance as patient completes activity. Assistance may be provided throughout the activity or intermittently. 3-Partial/Moderate Assistance-helper does LESS THAN HALF the effort. [place] lifts, holds or supports trunk or limbs, but provides less than half the effort. 2-Substantial/Maximal Assistance-helper does MORE THAN HALF the effort. [place] lifts or holds trunk or limbs and provides more than half the effort. 8-Dcywxcajt-ywhdjm does ALL the effort. Patient does none of the effort to complete the activity. Or, the assistance of 2 or more helpers is required for the patient to complete the activity. If activity was not attempted, code reason: 7-Patient Refused. 9-Not Applicable-not attempted and the patient did not perform the activity before the current illness, exacerbation or injury. 10-Not Attempted due to Environmental Limitations-(lack of equipment, weather restraints, etc.). 88-Not Attempted due to Medical Conditions or Safety Concerns. Sit to Stand (QC): 5 Toilet Transfer (QC): 5 Weight Bearing Weight Bearing/Tolerated Weight Bearing/Tolerated Gait Training Does the Patient Walk?: Yes Distance: 150' x2 Walk 10 feet (QC): 6 Walk 50 ft with 2 Turns(QC): 6 Walk 150 ft (QC): 6 Gait Assistive Device: FWW Wheelchair Training Does the Pt Use a Wheelchair?: No Exercises NuStep Minutes: 10 NuStep Workload: 4 Treatments Pt TF from bed to standing and uses BR. Pt amb. in hallway then uses NuStep before returning to room to rest at end of tx. All needs met, call light in hand. Assessment Current Status: Good Progress Pt is improving w/strength, mobility and independence of tasks. Balance has also improved. PT Founder President And Ceo Goals [facility] Goals PT [facility] Goals Time Frame: Jun 10, 2022 Roll Left & Right (QC): 6 Sit to Lying (QC): 6 Lying-Sitting on Side/Bed(QC): 6 Sit to Stand (QC): 6 Chair/Xtj-pu-Popna Xfer(QC): 6 (Patient to perform stand<>pivot transfers with FWW mod (I) with correct hand placement 100% of time.) Toilet Transfer (QC): 6 Car Transfer (QC): 5 Does the Patient Walk: Yes Walk 10 feet (QC): 6 Walk 50ft with 2 Turns (QC): 6 Walk 150 ft (QC): 6 (Patient will ambulate 200' mod (I) with FWW with improved stepping strategy (R) LE.) Walking 10ft on Uneven Surface: 6 (With FWW) 1 Step (curb) (QC): 6 (with FWW) 4 Steps (QC): 5 ((B) handrails) 12 Steps (QC): 5 ((B) handrails) Picking up an Object (QC): 6 Does the Pt use WC or Scooter?: No Wheel 50 feet with 2 turns (QC: 9 Type: N/A Wheel 150 feet: 9 Type: N/A PT Plan Treatment/Plan Treatment Plan: Continue Plan of Care Treatment Plan: Education, Functional Activity [place], Functional Strength, Group Therapy, Gait, Safety, Therapeutic Exercise, Transfers, Other Treatment Duration: Jun 10, 2022 Frequency: At least 5 of 7 days/Wk (IRF) Estimated Hrs Per Day: 1.5 hours per day Patient and/or Family Agrees t: Yes Time Time In: 845 Time Out: 930 DATE: May 24, 2022 Total Billed Treatment Time: 45 Total Billed Treatment 1, GT (15m), FA (15m) & EX (15m) SINGH ORDAZ PTA May 24, 2022 09:48
--- NOTE | 2022-05-24 12:34 | Occupational Ther Daily Note ---
OT Current Status-Daily Note Subjective Pt alert, sitting EOB. Pt agrees to therapy. No c/o pain. Mental Status/Objective Patient Orientation: Person, Place, Time, Situation ADL-Treatment Pt agrees to shower. Pt SBA with gathering clothing using FWW then completes UBD, LBD and footwear by self. Independent with toileting. Pt completed shower using grabbars, hand held shower and bath bench independently. Standing at sink, pt able to complete oral care and grooming independently. Therapy Code Descriptions/Definitions Functional [place] Measure: 0=Not Assessed/NA 4=Minimal Assistance 1=Total Assistance 5=Supervision or Setup 2=Maximal Assistance 6=Modified [place] 3=Moderate Assistance 7=Complete IndependenceSCALE: Activities may be completed with or without assistive devices. 7-Gbmrtixkus-sfocyqm completes the activity by him/herself with no assistance from a helper. 5-Set-up or Clean-up Assistance-helper sets up or cleans up; patient completes activity. [place] assists only prior to or following the activity. 4-Supervision or Touching Assistance-helper provides verbal cues and/or touching/steadying and/or contact guard assistance as patient completes activity. Assistance may be provided throughout the activity or intermittently. 3-Partial/Moderate Assistance-helper does LESS THAN HALF the effort. [place] lifts, holds or supports trunk or limbs, but provides less than half the effort. 2-Substantial/Maximal Assistance-helper does MORE THAN HALF the effort. [place] lifts or holds trunk or limbs and provides more than half the effort. 0-Jrlfvrutu-stucln does ALL the effort. Patient does none of the effort to complete the activity. Or, the assistance of 2 or more helpers is required for the patient to complete the activity. If activity was not attempted, code reason: 7-Patient Refused. 9-Not Applicable-not attempted and the patient did not perform the activity before the current illness, exacerbation or injury. 10-Not Attempted due to Environmental Limitations-(lack of equipment, weather restraints, etc.). 88-Not Attempted due to Medical Conditions or Safety Concerns. Oral Hygiene (QC): 6 Shower/Bathe Self (QC): 6 Upper Body Dressing (QC): 4 Lower Body Dressing (QC): 4 On/Off Footwear: 4 Toileting Hygiene (QC): 6 Toilet Transfer (QC): 6 Other Treatment Pt working on ambulation without AD while completing fine motor strengthening tasks. Pt required cues to keep R knee from hyperextension, pt able to manage 90% of the time with CGA. Pt completed strengthening with R hand without difficulty. After session, pt sitting EOB with call light/phone in reach. All needs met in room. OT Short Term Goals Short Term Goals Time Frame: May 31, 2022 Shower/bathe self: 5 Upper body dressin Lower body dressin Putting on/taking off footwear: 5 OT [facility] Goals Manager Labor Delivery Goals Time Frame: Jun 11, 2022 Acute change in mental status: 0 Inattention: 0 Disorganized thinkin Altered level of consciousness: 0 Eating (QC): 6 Oral Hygiene (QC): 6 Toileting Hygiene (QC): 6 Shower/Bathe Self (QC): 6 Upper Body Dressing (QC): 6 Lower Body Dressing (QC): 6 On/Off Footwear (QC): 6 Additional Goals: 1-Demonstrate ADL Tasks, 2-Verbalize Understanding, 3- ImproveStrength/[place] 1=Demonstrate adherence to instructed precautions during ADL tasks. 2=Patient will verbalize/demonstrate understanding of assistive devices/modifications for ADL. 3=Patient will improve strength/tolerance for activity to enable patient to perform ADL's. OT Education/Plan Problem List/Assessment Assessment: Decreased Activ Tolerance, Impaired Self-Care Skills Discharge Recommendations Plan/Recommendations: Continue POC Treatment Plan/Plan of Care Patient would benefit from OT for education, treatment and training to promote independence in ADL's, mobility, safety and/or upper extremity function for ADL's. Plan of Care: ADL Retraining, Functional Mobility, Group Exercise/Act as Ind, UE Funct Exercise/Act, UE Neuromus Re-Ed/Coord Treatment Duration: Jun 11, 2022 Frequency: At least 5 of 7 days/Wk (IRF) Estimated Hrs Per Day: .25 hour per day Agreement: Yes Rehab Potential: Good Time Start Time: 11:00 Stop Time: 12:00 DATE: May 24, 2022 Total Time Billed (hr/min): 60 Billed Treatment Time 1 visit-ADL 2 (30 min) NM 2 (30 min) MITCHEL BUENROSTRO May 24, 2022 12:34
--- NOTE | 2022-05-24 14:33 | Therapy Group Daily Note ---
Therapy Daily Group Note Patient Education Topic Exercises, Other List Below (benefits of exercise) Exercises LE Seated Exercise, UE Exercise Session Ratio (pt:therapist): 4:1 Goal of Session: UE/LE Strengthing, Other (list) (benefits of exercise) Goal Met for this Session: Yes Pt Benefit of Group: Contributions to Others, Increased Functional Strength, I mproved Cognition, Recognition of Peers, Socialization Other/Notes Pt ambulated using FWW to [facility] to participate in OT group. Group consisted of introductions (name, place, favorite activity), socialization, B UE/LE seated exercises and education on benefits of exercise. Pt introduced self appropriately and actively listened to peers. Pt acknowledged understanding of educational topics by giving own personal activities and routines. Pt modified exercises due to limitations of UE/LE. After session, pt lying in bed with call light/phone in reach. All needs met in room. Start Time: 13:00 Stop Time: 14:15 Total Billed Treatment Time: 75 Total Billed Treatment 1-GRP MITCHEL BUENROSTRO May 24, 2022 14:33
[2022-05-24 20:33] VITALS: BP 142/71
--- NOTE | 2022-05-25 06:46 | PM&R Progress Note ---
Subjective HPI/CC On Admission Date Seen by Provider: May 25, 2022 Time Seen by Provider: 09:00 Subjective/Events-last exam 05/25/2022: Doing well Ready for DC tomorrow No concerns 05/24/2022: Improved overall Balance is improved Using walker 05/23/2022: Improved overall Moving well No pain No BP issues 05/22/2022: No major issues Improved ambulation Improved weakness deficit No falls 05/21/2022: Doing well Participation is good No major concerns BP stable Labs reviewed Review of Systems General: Fatigue, Malaise Objective Exam Vital Signs Vital Signs Date Time Temp Pulse Resp B/P (MAP) Pulse Ox O2 Delivery O2 Flow Rate FiO2 05/25/22 20:45 95 Room Air 05/25/22 19:33 36.8 73 20 118/74 (89) Capillary Refill : General Appearance: No Apparent Distress, WD/WN, Chronically ill, Thin HEENT: PERRL/EOMI, Normal ENT Inspection, Pharynx Normal Neck: Full Range of Motion, Normal Inspection, Non Tender, Supple, Carotid Bruit Respiratory: Chest Non Tender, Lungs Clear, No Accessory Muscle Use, No Respiratory Distress, Decreased Breath Sounds Cardiovascular: Regular Rate, Rhythm, No Edema, No Gallop, No JVD, No Murmur, Normal Peripheral Pulses Gastrointestinal: Normal Bowel Sounds, No Organomegaly, No Pulsatile Mass, Non Tender, Soft Back: Normal Inspection, No CVA Tenderness, No Vertebral Tenderness Extremity: Normal Capillary Refill, Normal Inspection, Normal Range of Motion, Non Tender, No Calf Tenderness, No Pedal Edema Neurologic/Psychiatric: Alert, Oriented x3, senior network security engineer II-XII Norm as Tested, Abnormal Gait, Depressed Affect, Motor Weakness (right sided weakness 3/5) Skin: Normal Color, Warm/Dry Lymphatic: No Adenopathy Results/Procedures Lab Patient resulted labs reviewed. FIM Transfers Therapy Code Descriptions/Definitions Functional [place] Measure: 0=Not Assessed/NA 4=Minimal Assistance 1=Total Assistance 5=Supervision or Setup 2=Maximal Assistance 6=Modified [place] 3=Moderate Assistance 7=Complete IndependenceSCALE: Activities may be completed with or without assistive devices. 9-Nvbcuizwgf-jyphlgk completes the activity by him/herself with no assistance from a helper. 5-Set-up or Clean-up Assistance-helper sets up or cleans up; patient completes activity. [place] assists only prior to or following the activity. 4-Supervision or Touching Assistance-helper provides verbal cues and/or touching/steadying and/or contact guard assistance as patient completes activity. Assistance may be provided throughout the activity or intermittently. 3-Partial/Moderate Assistance-helper does LESS THAN HALF the effort. [place] lifts, holds or supports trunk or limbs, but provides less than half the effort. 2-Substantial/Maximal Assistance-helper does MORE THAN HALF the effort. [place] l ifts or holds trunk or limbs and provides more than half the effort. 5-Odxtuwahw-tqanpo does ALL the effort. Patient does none of the effort to complete the activity. Or, the assistance of 2 or more helpers is required for the patient to complete the activity. If activity was not attempted, code reason: 7-Patient Refused. 9-Not Applicable-not attempted and the patient did not perform the activity before the current illness, exacerbation or injury. 10-Not Attempted due to Environmental Limitations-(lack of equipment, weather restraints, etc.). 88-Not Attempted due to Medical Conditions or Safety Concerns. Roll Left to Right (QC): 6 Sit to Lying (QC): 6 Sit to Stand (QC): 5 Chair/Uuu-lq-Vqfyj Xfer(QC): 3 (MIn (A) with FWW, ataxic (R) LE) Car Transfer (QC): 3 (impulsivity noted, min (A)) Gait Training Does the Patient Walk?: Yes Distance: 150' x2 Walk 10 feet (QC): 6 Walk 50 ft with 2 Turns(QC): 6 Walk 150 ft (QC): 6 Walking 10ft/uneven surface-QC: 3 (with FWW) Gait Persons Needed: 1 Gait Assistive Device: FWW Wheelchair Training Does the Pt Use a Wheelchair?: No Wheel 50 ft with 2 turns (QC): 9 Wheel 150 ft (QC): 9 Type of Wheelchair: N/A Stair Training #of Steps: 5 (x 2) 1 Step (curb) (QC): 3 (Min (A) with v.c. for walker placement and LE sequencing.) 4 Steps (QC): 3 (Min (A) with (B) handrails and v.c. for correct sequencing of LE's, step-to pattern) 12 Steps (QC): 10 Balance Picking up an Object (QC): 4 (min (A), patient quick and impulsive requiring assist to maintain position when cued to perform task) ADL-Treatment Eating (QC): 6 Oral Hygiene (QC): 6 Shower/Bathe Self (QC): 6 Upper Body Dressing (QC): 4 Lower Body Dressing (QC): 4 On/Off Footwear (QC): 4 Toileting Hygiene (QC): 6 Toilet Transfer (QC): 6 Assessment/Plan Assessment and Plan Assess & Plan/Chief Complaint Assessment: CVA with right sided weakness HTN HLP Smoker Plan: Monitor closely PT OT Monitor BP 05/21/2022: Monitor closely 05/22/2022: Nicotine patch Monitor BP 05/23/2022: Monitor BP 05/24/2022: Monitor closely 05/25/2022: DC home tomorrow (1) CVA (cerebral vascular accident) ALONZO ANGEL DO May 25, 2022 06:46
[2022-05-25 08:00] VITALS: BP 107/62
[2022-05-25] MEDS: NICOTINE PATCH REMOVAL TP SCH (09:02)
[2022-05-25] MEDS: lisINopril 20 MG (PRINIVIL) TABLET PO SCH (09:03)
[2022-05-25] MEDS: amLODIPine 5 MG (NORVASC) TAB PO SCH (09:03)
[2022-05-25] MEDS: hydrALAZINE (APRESOLINE) 25 MG TAB PO SCH ×2 (09:04→20:46)
[2022-05-25] MEDS: ASPIRIN E.C. 81 MG (ECOTRIN) TAB PO SCH (09:04)
[2022-05-25] MEDS: FLUoxetine HCL 20 MG (PROzac) CAP PO SCH (09:04)
[2022-05-25] MEDS: NICOTINE 21 MG (NICODERM) PATCH TD SCH (09:04)
[2022-05-25] MEDS: SENNA W/DOCUSATE (SENOKOT S) TABLET PO SCH ×2 (09:04→20:45)
[2022-05-25] MEDS: DOCUSATE SODIUM 100 MG (COLACE) CAP PO SCH ×2 (09:04→20:45)
[2022-05-25] MEDS: polyethylene glycoL POWDER 17 GM (MIRALAX) PACK PO SCH ×2 (09:04→20:45)
--- NOTE | 2022-05-25 10:05 | Physical Therapy Daily Note ---
PT Daily Note-Current Subjective pt found sitting on bed upon arrival. pt willing for therapy. Pain Section J - Health Conditions 1. Rarely or not at all 2. Occasionally 3. Frequently 4. Almost constantly 8. Unable to answer Pain Effect on Sleep: 1 Pain Interference with Therapy: 1 Pain Interference w/Day-to-Day: 1 Mental Status Patient Orientation: Person, Place, Time, Situation Transfers SCALE: Activities may be completed with or without assistive devices. 7-Bkqupbnqfi-lqrghuh completes the activity by him/herself with no assistance from a helper. 5-Set-up or Clean-up Assistance-helper sets up or cleans up; patient completes activity. [place] assists only prior to or following the activity. 4-Supervision or Touching Assistance-helper provides verbal cues and/or touching/steadying and/or contact guard assistance as patient completes activity. Assistance may be provided throughout the activity or intermittently. 3-Partial/Moderate Assistance-helper does LESS THAN HALF the effort. [place] lifts, holds or supports trunk or limbs, but provides less than half the effort. 2-Substantial/Maximal Assistance-helper does MORE THAN HALF the effort. [place] lifts or holds trunk or limbs and provides more than half the effort. 4-Wfudavbnk-ceegib does ALL the effort. Patient does none of the effort to complete the activity. Or, the assistance of 2 or more helpers is required for the patient to complete the activity. If activity was not attempted, code reason: 7-Patient Refused. 9-Not Applicable-not attempted and the patient did not perform the activity before the current illness, exacerbation or injury. 10-Not Attempted due to Environmental Limitations-(lack of equipment, weather restraints, etc.). 88-Not Attempted due to Medical Conditions or Safety Concerns. Sit to Stand (QC): 5 Weight Bearing Weight Bearing/Tolerated Weight Bearing/Tolerated Gait Training Does the Patient Walk?: Yes Distance: 200ft Walk 150 ft (QC): 4 Gait Assistive Device: None pt reqires VC for narrow base of support but is able to self correct after VC this day Exercises Standing: Step-ups (emphasis on the right side for increaed strength this day) NuStep Minutes: 10 NuStep Workload: 5 Treatments pt working on gait balance and SUSANA along with endurance for functional ambulation this day. pt working on neuro mm control of rigth side BLE Assessment Current Status: Excellent Progress pt making agins in balance and right side motor control. pt good to make progr ess PT Night Warehouse Selector Goals Night Warehouse Selector Goals PT Night Warehouse Selector Goals Time Frame: Jun 10, 2022 Roll Left & Right (QC): 6 Sit to Lying (QC): 6 Lying-Sitting on Side/Bed(QC): 6 Sit to Stand (QC): 6 Chair/Yxi-hy-Eddgx Xfer(QC): 6 (Patient to perform stand<>pivot transfers with FWW mod (I) with correct hand placement 100% of time.) Toilet Transfer (QC): 6 Car Transfer (QC): 5 Does the Patient Walk: Yes Walk 10 feet (QC): 6 Walk 50ft with 2 Turns (QC): 6 Walk 150 ft (QC): 6 (Patient will ambulate 200' mod (I) with FWW with improved stepping strategy (R) LE.) Walking 10ft on Uneven Surface: 6 (With FWW) 1 Step (curb) (QC): 6 (with FWW) 4 Steps (QC): 5 ((B) handrails) 12 Steps (QC): 5 ((B) handrails) Picking up an Object (QC): 6 Does the Pt use WC or Scooter?: No Wheel 50 feet with 2 turns (QC: 9 Type: N/A Wheel 150 feet: 9 Type: N/A PT Plan Treatment/Plan Treatment Plan: Continue Plan of Care Treatment Plan: Education, Functional Activity [place], Functional Strength, Group Therapy, Gait, Safety, Therapeutic Exercise, Transfers, Other Treatment Duration: Jun 10, 2022 Frequency: At least 5 of 7 days/Wk (IRF) Estimated Hrs Per Day: 1.5 hours per day Patient and/or Family Agrees t: Yes Time Time In: 0900 Time Out: 1000 DATE: May 25, 2022 Total Billed Treatment Time: 60 Total Billed Treatment 1, nm, gt x 2, SINGH Johnston PTA May 25, 2022 10:05
--- NOTE | 2022-05-25 11:18 | Occupational Ther Daily Note ---
OT Current Status-Daily Note Subjective Pt sleeping in bed, difficult to wake. Pt agrees to therapy. No c/o pain. Pt to discharge 05/26/2022. Mental Status/Objective Patient Orientation: Person, Place, Time, Situation ADL-Treatment Independent with bed mobility. Independent gathering clothing using FWW. Independent standing at sink to complete oral care. Therapy Code Descriptions/Definitions Functional [place] Measure: 0=Not Assessed/NA 4=Minimal Assistance 1=Total Assistance 5=Supervision or Setup 2=Maximal Assistance 6=Modified [place] 3=Moderate Assistance 7=Complete IndependenceSCALE: Activities may be completed with or without assistive devices. 6-Mspvxbhubh-hlqnvwk completes the activity by him/herself with no assistance from a helper. 5-Set-up or Clean-up Assistance-helper sets up or cleans up; patient completes activity. [place] assists only prior to or following the activity. 4-Supervision or Touching Assistance-helper provides verbal cues and/or touching/steadying and/or contact guard assistance as patient completes activity. Assistance may be provided throughout the activity or intermittently. 3-Partial/Moderate Assistance-helper does LESS THAN HALF the effort. [place] lifts, holds or supports trunk or limbs, but provides less than half the effort. 2-Substantial/Maximal Assistance-helper does MORE THAN HALF the effort. [place] lifts or holds trunk or limbs and provides more than half the effort. 6-Ftxzffvfr-skzirz does ALL the effort. Patient does none of the effort to complete the activity. Or, the assistance of 2 or more helpers is required for the patient to complete the activity. If activity was not attempted, code reason: 7-Patient Refused. 9-Not Applicable-not attempted and the patient did not perform the activity before the current illness, exacerbation or injury. 10-Not Attempted due to Environmental Limitations-(lack of equipment, weather restraints, etc.). 88-Not Attempted due to Medical Conditions or Safety Concerns. Eating (QC): 6 (Demonstrates ability to complete.) Oral Hygiene (QC): 6 Other Treatment Pt ambulates to therapy gym without AD, CGA for safety. Pt ambulating slowly and maintaining R knee in neutral instead of hyperextension from yesterday. Pt completed sit to stand activities to work on B UE strengthening against gravity for gross motor then resistive task for fine motor. Sit to stands 20x with 1 recovery break without pushing up from chair to work on dynamic balance for daily functional tasks. After session, pt sitting EOB with call light/phone in reach. All needs met in room. OT Short Term Goals Short Term Goals Time Frame: May 31, 2022 Shower/bathe self: 5 Upper body dressin Lower body dressin Putting on/taking off footwear: 5 OT Grading Machine Feeder Goals [facility] Goals Time Frame: Jun 11, 2022 Acute change in mental status: 0 Inattention: 0 Disorganized thinkin Altered level of consciousness: 0 Eating (QC): 6 Oral Hygiene (QC): 6 Toileting Hygiene (QC): 6 Shower/Bathe Self (QC): 6 Upper Body Dressing (QC): 6 Lower Body Dressing (QC): 6 On/Off Footwear (QC): 6 Additional Goals: 1-Demonstrate ADL Tasks, 2-Verbalize Understanding, 3- ImproveStrength/[place] 1=Demonstrate adherence to instructed precautions during ADL tasks. 2=Patient will verbalize/demonstrate understanding of assistive devices/modifications for ADL. 3=Patient will improve strength/tolerance for activity to enable patient to perform ADL's. OT Education/Plan Problem List/Assessment Assessment: Impaired Funct Balance Discharge Recommendations Plan/Recommendations: Continue POC Treatment Plan/Plan of Care Patient would benefit from OT for education, treatment and training to promote independence in ADL's, mobility, safety and/or upper extremity function for ADL's. Plan of Care: ADL Retraining, Functional Mobility, Group Exercise/Act as Ind, UE Funct Exercise/Act, UE Neuromus Re-Ed/Coord Treatment Duration: Jun 11, 2022 Frequency: At least 5 of 7 days/Wk (IRF) Estimated Hrs Per Day: .25 hour per day Agreement: Yes Rehab Potential: Good Time Start Time: 08:30 Stop Time: 09:00 DATE: May 25, 2022 Total Time Billed (hr/min): 30 Billed Treatment Time 1 visit-ADL 1 (15 min) EX 1 (15 min) MITCHEL BUENROSTRO May 25, 2022 11:18
--- NOTE | 2022-05-25 11:22 | Occupational Ther Daily Note ---
OT Current Status-Daily Note Subjective Pt sleeping in bed, difficult to wake. Pt agrees to therapy. No c/o pain. Mental Status/Objective Patient Orientation: Person, Place, Time, Situation ADL-Treatment Independent with ambulating using FWW. Independent with toilet transfer and toileting. Independent with shower. Independent with dressing and footwear. Therapy Code Descriptions/Definitions Functional [place] Measure: 0=Not Assessed/NA 4=Minimal Assistance 1=Total Assistance 5=Supervision or Setup 2=Maximal Assistance 6=Modified [place] 3=Moderate Assistance 7=Complete IndependenceSCALE: Activities may be completed with or without assistive devices. 4-Lefnmkqxok-jxnfabh completes the activity by him/herself with no assistance from a helper. 5-Set-up or Clean-up Assistance-helper sets up or cleans up; patient completes activity. [place] assists only prior to or following the activity. 4-Supervision or Touching Assistance-helper provides verbal cues and/or touching/steadying and/or contact guard assistance as patient completes activity. Assistance may be provided throughout the activity or intermittently. 3-Partial/Moderate Assistance-helper does LESS THAN HALF the effort. [place] lifts, holds or supports trunk or limbs, but provides less than half the effort. 2-Substantial/Maximal Assistance-helper does MORE THAN HALF the effort. [place] lifts or holds trunk or limbs and provides more than half the effort. 1-Avusblebq-aoglss does ALL the effort. Patient does none of the effort to complete the activity. Or, the assistance of 2 or more helpers is required for the patient to complete the activity. If activity was not attempted, code reason: 7-Patient Refused. 9-Not Applicable-not attempted and the patient did not perform the activity before the current illness, exacerbation or injury. 10-Not Attempted due to Environmental Limitations-(lack of equipment, weather restraints, etc.). 88-Not Attempted due to Medical Conditions or Safety Concerns. Shower/Bathe Self (QC): 6 Upper Body Dressing (QC): 6 Lower Body Dressing (QC): 6 On/Off Footwear: 6 Toileting Hygiene (QC): 6 Toilet Transfer (QC): 6 Other Treatment Pt completed fine motor tasks to strength fingers for handwriting. Pt is demonstrating slight decrease of fine motor dexterity and coordination with R fingers though was accurate while focusing on task. After session, pt sitting on EOB with call light/phone in reach. All needs met in room. BIMS CAM BIMS Expression of Ideas and Wants: Without Difficulty Understanding Verbal Content: Understands Brief Interview/Mental Status: Yes IRF CHRISTIANO BIMS: IRF CHRISTIANO BIMS Response (Comments) Value Repitition of Three Words Three 3 Recalls Socks Yes, No Cue Required 2 Recalls Blue Yes, No Cue Required 2 Recalls Bed Yes, No Cue Required 2 Year Correct 3 Month Accurate Within 5 Days 2 Day Correct 1 Total 15 Patient Normally Able to Recal: Current Session, Location of own room, Staff Names and faces, That he/she in a hsp Should Staff Asses. Mental St.: No CAM Mental Status Change/Baseline: 0 Inattention: 0 Disorganized thinkin Altered level of consciousness: 0 OT Short Term Goals Short Term Goals Time Frame: May 31, 2022 Shower/bathe self: 5 Upper body dressin Lower body dressin Putting on/taking off footwear: 5 OT Nursing Home Goals Jet Dyeing Machine Tender Goals Time Frame: Jun 11, 2022 Acute change in mental status: 0 Inattention: 0 Disorganized thinkin Altered level of consciousness: 0 Eating (QC): 6 (met) Oral Hygiene (QC): 6 (met) Toileting Hygiene (QC): 6 (met) Shower/Bathe Self (QC): 6 (met) Upper Body Dressing (QC): 6 (met) Lower Body Dressing (QC): 6 (met) On/Off Footwear (QC): 6 (met) Additional Goals: 1-Demonstrate ADL Tasks, 2-Verbalize Understanding, 3- ImproveStrength/Pelon 1=Demonstrate adherence to instructed precautions during ADL tasks. 2=Patient will verbalize/demonstrate understanding of assistive devices/m odifications for ADL. 3=Patient will improve strength/tolerance for activity to enable patient to perform ADL's. OT Education/Plan Problem List/Assessment Assessment: Decreased Activ Tolerance, Visual-Perceptual Deficit Discharge Recommendations Plan/Recommendations: Continue POC Treatment Plan/Plan of Care Patient would benefit from OT for education, treatment and training to promote independence in ADL's, mobility, safety and/or upper extremity function for ADL's. Plan of Care: ADL Retraining, Functional Mobility, Group Exercise/Act as Ind, UE Funct Exercise/Act, UE Neuromus Re-Ed/Coord Treatment Duration: Jun 11, 2022 Frequency: At least 5 of 7 days/Wk (IRF) Estimated Hrs Per Day: .25 hour per day Agreement: Yes Rehab Potential: Good Time Start Time: 11:00 Stop Time: 12:00 DATE: May 25, 2022 Total Time Billed (hr/min): 60 Billed Treatment Time 1 visit-ADL 3 (40 min) EX 1 (20 min) MITCHEL BUENROSTRO May 25, 2022 11:22
--- NOTE | 2022-05-25 16:00 | Physical Therapy Daily Note ---
PT Daily Note-Current Subjective Pt sitting at EOB visiting w/Mom & sister. Pt agrees to PT. Pain Location: No Pain Reported Section J - Health Conditions 1. Rarely or not at all 2. Occasionally 3. Frequently 4. Almost constantly 8. Unable to answer Pain Effect on Sleep: 1 Pain Interference with Therapy: 1 Pain Interference w/Day-to-Day: 1 Mental Status Patient Orientation: Person, Place, Time, Situation Transfers SCALE: Activities may be completed with or without assistive devices. 4-Mtlwreyjib-almiaxb completes the activity by him/herself with no assistance from a helper. 5-Set-up or Clean-up Assistance-helper sets up or cleans up; patient completes activity. [place] assists only prior to or following the activity. 4-Supervision or Touching Assistance-helper provides verbal cues and/or touc brendan/steadying and/or contact guard assistance as patient completes activity. Assistance may be provided throughout the activity or intermittently. 3-Partial/Moderate Assistance-helper does LESS THAN HALF the effort. [place] lifts, holds or supports trunk or limbs, but provides less than half the effort. 2-Substantial/Maximal Assistance-helper does MORE THAN HALF the effort. [place] lifts or holds trunk or limbs and provides more than half the effort. 4-Scwogmcww-qozrhc does ALL the effort. Patient does none of the effort to complete the activity. Or, the assistance of 2 or more helpers is required for the patient to complete the activity. If activity was not attempted, code reason: 7-Patient Refused. 9-Not Applicable-not attempted and the patient did not perform the activity before the current illness, exacerbation or injury. 10-Not Attempted due to Environmental Limitations-(lack of equipment, weather restraints, etc.). 88-Not Attempted due to Medical Conditions or Safety Concerns. Roll Left & Right (QC): 6 Sit to Lying (QC): 6 Lying to Sitting/Side of Bed(Q: 6 Sit to Stand (QC): 6 Chair/Vbt-rn-Phbmb Xfer(QC): 6 Toilet Transfer (QC): 6 Car Transfer (QC): 6 Weight Bearing Weight Bearing/Tolerated Weight Bearing/Tolerated Gait Training Distance: 200' Walk 10 feet (QC): 6 Walk 50 ft with 2 Turns(QC): 5 Walk 150 ft (QC): 5 Walking 10ft/uneven surface-QC: 5 Gait Assistive Device: None Wheelchair Training Does the Pt Use a Wheelchair?: No Stair Training Stair Training: Handrails/: 2 handrails #of Steps: 6 1 Step (curb) (QC): 5 4 Steps (QC): 4 12 Steps (QC): 10 Stairs: Pattern: Step to Balance Picking up an Object (QC): 5 Treatments Pt completes QC scoring items listed above including amb. Pt returns to room to rest at EOB w/all needs met, call light in hand. Assessment Current Status: Good Progress Pt has improved w/TF & mobility but does fatigue by end of tx. PT Structural Analysis Engineer Goals Structural Analysis Engineer Goals PT Structural Analysis Engineer Goals Time Frame: Jun 10, 2022 Roll Left & Right (QC): 6 Sit to Lying (QC): 6 Lying-Sitting on Side/Bed(QC): 6 Sit to Stand (QC): 6 Chair/Hyi-gl-Ndbbm Xfer(QC): 6 (Patient to perform stand<>pivot transfers with FWW mod (I) with correct hand placement 100% of time.) Toilet Transfer (QC): 6 Car Transfer (QC): 5 Does the Patient Walk: Yes Walk 10 feet (QC): 6 Walk 50ft with 2 Turns (QC): 6 Walk 150 ft (QC): 6 (Patient will ambulate 200' mod (I) with FWW with improved stepping strategy (R) LE.) Walking 10ft on Uneven Surface: 6 (With FWW) 1 Step (curb) (QC): 6 (with FWW) 4 Steps (QC): 5 ((B) handrails) 12 Steps (QC): 5 ((B) handrails) Picking up an Object (QC): 6 Does the Pt use WC or Scooter?: No Wheel 50 feet with 2 turns (QC: 9 Type: N/A Wheel 150 feet: 9 Type: N/A PT Plan Problem List Problem List: Activity Tolerance Treatment/Plan Treatment Plan: Continue Plan of Care Treatment Plan: Education, Functional Activity [place], Functional Strength, Group Therapy, Gait, Safety, Therapeutic Exercise, Transfers, Other Treatment Duration: Jun 10, 2022 Frequency: At least 5 of 7 days/Wk (IRF) Estimated Hrs Per Day: 1.5 hours per day Patient and/or Family Agrees t: Yes Safety Risks/Education Patient Education: Gait Training Teaching Recipient: Patient Teaching Methods: Discussion Response to Teaching: Verbalize Understanding Time Time In: 1400 Time Out: 1430 DATE: May 25, 2022 Total Billed Treatment Time: 30 Total Billed Treatment 1, GT x2 (30m) SINGH ORDAZ PTA May 25, 2022 16:00
[2022-05-25 19:33] VITALS: BP 118/74
--- NOTE | 2022-05-25 19:51 | Progress Note ---
JEET BLISS 05/25/221950: Progress Note I have reviewed all the Therapy records for Melyssa Khalil, a 72 year old female who was admitted to the [facility] rehab unit on 05/18 from [facility] following an acute left basal ganglia stroke with HTN urgency. During her stay she saw PT/OT routinely. Per PT notes, Upon initial presentation Patient was having having residual Right sided weakness but was able to roll in bed, go from sitting to lying, and from lying to sitting on side of bed independently. She needed moderate assistance with going from sitting to standing, from chair to bed and back, transfering to the toilet, and with car transfers. She was able to walk up to 150ft as well as perform turns with moderate assistance and the help of a FWW. Same with walking up to 10ft on uneven surface and performing up to 4 stair steps. By 05/25 she was able to go from sitting to standing with help setting up. and was able to walk up to 200ft with supervision w/out the use of a FWW and perform toilet transfers. Per OT notes, Upon initial presentation she was able to perform upper body dressing and footwear independently. She could eat with help setting up. She could perform oral hygiene, bathe, dress her lower body, and perform toilet hygiene with supervision or touching assistance. By 05/25 she was able to perform all aspects of ADL independently. ALONZO ANGEL DO 05/26/22 0515: Supervisory-Addendum Brief Verification & Attestation Participated in pt care: history, MDM, physical Personally performed: exam, history, MDM, supervision of care Care discussed with: Medical Student Procedures: n/a Results interpretation: Verified all documentation Verification and Attestation of Medical Student E/M Service A medical student performed and documented this service in my presence. I reviewed and verified all information documented by the medical student and made modifications to such information, when appropriate. I personally performed the physical exam and medical decision making. Alonzo Angel May 26, 2022,05:15 JEET BLISS May 25, 2022 19:51 ALONZO ANGEL DO May 26, 2022 05:15
[2022-05-26] MEDS ORDERED: ASPI-1238 PO (06:24)
[2022-05-26] MEDS ORDERED: AMLO1CAP5 PO (06:24)
[2022-05-26] MEDS ORDERED: FLUO40CA PO (06:24)
[2022-05-26] MEDS ORDERED: ATOR80TA76 PO (06:24)
[2022-05-26] MEDS ORDERED: HYDR-3923 PO (06:24)
--- NOTE | 2022-05-26 06:24 | Discharge Summary ---
Diagnosis/Chief Complaint Date of Admission May 20, 2022 at 15:15 Date of Discharge Discharge Date: May 26, 2022 Discharge Diagnosis Assessment: CVA with right sided weakness HTN HLP Smoker Plan: Monitor closely PT OT Monitor BP 05/21/2022: Monitor closely 05/22/2022: Nicotine patch Monitor BP 05/23/2022: Monitor BP 05/24/2022: Monitor closely 05/25/2022: DC home tomorrow (1) CVA (cerebral vascular accident) Discharge Summary Discharge Physical Examination Allergies: Coded Allergies: Penicillins (Verified Allergy, Unknown, RASH, 05/20/22) Vitals & I&Os Vital Signs Date Time Temp Pulse Resp B/P (MAP) Pulse Ox O2 Delivery O2 Flow Rate FiO2 05/26/22 14:01 36.6 69 16 139/65 93 Room Air General Appearance: Alert, Oriented X3, Cooperative Respiratory: Clear to Auscultation Cardiovascular: Regular Rate Psych/Mental Status: Mental Status NL Hospital Course Was the Problem List Reviewed?: Yes Brief course after admitted for debility following CVA. Nicotine patch initiated along with BP meds. Overall she did very well and PT OT worked on balance and fall risk and she was able to regain independence and return home with close f/u PCP. Smoking cessation successful and patch sent in to maintain that status. Labs (last 24 hrs) Laboratory Tests 05/21/22 05:40: White Blood Count 6.4, Red Blood Count 4.39, Hemoglobin 13.5, Hematocrit 40, Mean Corpuscular Volume 91, Mean Corpuscular Hemoglobin 31, Mean Corpuscular Hemoglobin Concent 34, Red Cell Distribution Width 14.3, Platelet Count 252, Mean Platelet Volume 11.1, Immature Granulocyte % (Auto) 0, Neutrophils (%) (Auto) 45, Lymphocytes (%) (Auto) 40, Monocytes (%) (Auto) 10, Eosinophils (%) (Auto) 3, Basophils (%) (Auto) 2, Neutrophils # (Auto) 2.9, Lymphocytes # (Auto) 2.6, Monocytes # (Auto) 0.7, Eosinophils # (Auto) 0.2, Basophils # (Auto) 0.1, Immature Granulocyte # (Auto) 0.0, Sodium Level 139, Potassium Level 4.2, Chloride Level 107, Carbon Dioxide Level 21, Anion Gap 11, Blood Urea Nitrogen 20H, Creatinine 0.89, Estimat Glomerular Filtration Rate 69, BUN/Creatinine Ratio 22, Glucose Level 86, Calcium Level 9.3, Corrected Calcium 9.6, Total Bilirubin 0.5, Aspartate Amino Transf (AST/SGOT) 19, Alanine Aminotransferase (ALT/SGPT) 13, Alkaline Phosphatase 85, Total Protein 6.3L, Albumin 3.6 05/24/22 05:26: White Blood Count 6.5, Red Blood Count 4.07, Hemoglobin 12.4, Hematocrit 38, Mean Corpuscular Volume 93, Mean Corpuscular Hemoglobin 31, Mean Corpuscular Hemoglobin Concent 33, Red Cell Distribution Width 14.3, Platelet Count 210, Mean Platelet Volume 11.0, Immature Granulocyte % (Auto) 0, Neutrophils (%) (Auto) 47, Lymphocytes (%) (Auto) 36, Monocytes (%) (Auto) 13H, Eosinophils (%) (Auto) 2, Basophils (%) (Auto) 2, Neutrophils # (Auto) 3.1, Lymphocytes # (Auto) 2.3, Monocytes # (Auto) 0.8, Eosinophils # (Auto) 0.2, Basophils # (Auto) 0.1, Immature Granulocyte # (Auto) 0.0, Sodium Level 139, Potassium Level 4.2, Chloride Level 107, Carbon Dioxide Level 23, Anion Gap 9, Blood Urea Nitrogen 30H, Creatinine 0.83, Estimat Glomerular Filtration Rate 75, BUN/Creatinine Ratio 36, Glucose Level 82, Calcium Level 8.8, Corrected Calcium 9.3, Total Bilirubin 0.3, Aspartate Amino Transf (AST/SGOT) 28, Alanine Aminotransferase (ALT/SGPT) 34, Alkaline Phosphatase 73, Total Protein 5.8L, Albumin 3.4 Pending Labs Laboratory Tests 05/21/22 05:40: White Blood Count 6.4, Red Blood Count 4.39, Hemoglobin 13.5, Hematocrit 40, Mean Corpuscular Volume 91, Mean Corpuscular Hemoglobin 31, Mean Corpuscular Hemoglobin Concent 34, Red Cell Distribution Width 14.3, Platelet Count 252, Mean Platelet Volume 11.1, Immature Granulocyte % (Auto) 0, Neutrophils (%) (Auto) 45, Lymphocytes (%) (Auto) 40, Monocytes (%) (Auto) 10, Eosinophils (%) (Auto) 3, Basophils (%) (Auto) 2, Neutrophils # (Auto) 2.9, Lymphocytes # (Auto) 2.6, Monocytes # (Auto) 0.7, Eosinophils # (Auto) 0.2, Basophils # (Auto) 0.1, Immature Granulocyte # (Auto) 0.0, Sodium Level 139, Potassium Level 4.2, C hloride Level 107, Carbon Dioxide Level 21, Anion Gap 11, Blood Urea Nitrogen 20, Creatinine 0.89, Estimat Glomerular Filtration Rate 69, BUN/Creatinine Ratio 22, Glucose Level 86, Calcium Level 9.3, Corrected Calcium 9.6, Total Bilirubin 0.5, Aspartate Amino Transf (AST/SGOT) 19, Alanine Aminotransferase (ALT/SGPT) 13, Alkaline Phosphatase 85, Total Protein 6.3, Albumin 3.6 05/24/22 05:26: White Blood Count 6.5, Red Blood Count 4.07, Hemoglobin 12.4, Hematocrit 38, Mean Corpuscular Volume 93, Mean Corpuscular Hemoglobin 31, Mean Corpuscular Hemoglobin Concent 33, Red Cell Distribution Width 14.3, Platelet Count 210, Mean Platelet Volume 11.0, Immature Granulocyte % (Auto) 0, Neutrophils (%) (Auto) 47, Lymphocytes (%) (Auto) 36, Monocytes (%) (Auto) 13, Eosinophils (%) (Auto) 2, Basophils (%) (Auto) 2, Neutrophils # (Auto) 3.1, Lymphocytes # (Auto) 2.3, Monocytes # (Auto) 0.8, Eosinophils # (Auto) 0.2, Basophils # (Auto) 0.1, Immature Granulocyte # (Auto) 0.0, Sodium Level 139, Potassium Level 4.2, Chloride Level 107, Carbon Dioxide Level 23, Anion Gap 9, Blood Urea Nitrogen 30, Creatinine 0.83, Estimat Glomerular Filtration Rate 75, BUN/Creatinine Ratio 36, Glucose Level 82, Calcium Level 8.8, Corrected Calcium 9.3, Total Bilirubin 0.3, Aspartate Amino Transf (AST/SGOT) 28, Alanine Aminotransferase (ALT/SGPT) 34, Alkaline Phosphatase 73, Total Protein 5.8, Albumin 3.4 Discharge Home Medications: Active Scripts Active Nicoderm Cq (Nicotine) 21 Mg/24 Hour Patch.td24 21 Mg TD DAILY@0900 Aspirin EC (Aspirin) 81 Mg Tablet.dr 81 Mg PO DAILY Hydralazine HCl 25 Mg Tablet 50 Mg PO Q12HR Atorvastatin Calcium 80 Mg Tablet 80 Mg PO HS Fluoxetine HCl 40 Mg Capsule 40 Mg PO DAILY Lotrel 5-20 mg Capsule (Amlodipine Besylate/Benazepril) 5 Mg-20 Mg Capsule 1 Each PO DAILY Instructions to patient/family Please see electronic discharge instructions given to patient. Diagnosis/Problems Diagnosis/Problems (1) CVA (cerebral vascular accident) ALONZO ANGEL DO May 26, 2022 06:24
[2022-05-26 07:36] VITALS: BP 139/65
[2022-05-26] MEDS: ASPIRIN E.C. 81 MG (ECOTRIN) TAB PO SCH (08:28)
[2022-05-26] MEDS: amLODIPine 5 MG (NORVASC) TAB PO SCH (08:28)
[2022-05-26] MEDS: lisINopril 20 MG (PRINIVIL) TABLET PO SCH (08:28)
[2022-05-26] MEDS: hydrALAZINE (APRESOLINE) 25 MG TAB PO SCH (08:28)
[2022-05-26] MEDS: FLUoxetine HCL 20 MG (PROzac) CAP PO SCH (08:29)
[2022-05-26] MEDS: NICOTINE 21 MG (NICODERM) PATCH TD SCH (08:31)
[2022-05-26] MEDS: polyethylene glycoL POWDER 17 GM (MIRALAX) PACK PO SCH (08:32)
[2022-05-26] MEDS: SENNA W/DOCUSATE (SENOKOT S) TABLET PO SCH (08:32)
[2022-05-26] MEDS: DOCUSATE SODIUM 100 MG (COLACE) CAP PO SCH (08:32)
[2022-05-26] MEDS: NICOTINE PATCH REMOVAL TP SCH (08:33)
[2022-05-26] MEDS ORDERED: NICO1PAT34 TD (08:53)
--- NOTE | 2022-05-26 10:27 | Therapy Team Discharge Summary ---
Therapy Discharge Summary Discharge Recommendations Date of Discharge Physical Therapy Patient seen on ARU s/p CVA. (R) LE ataxia with impulsivity was main limitation initially, but has progressed to (I) level with transfers and gait with a FWW 150'-200' for max distance. Continues (R) AFO use. All goals met. Roll Left to Right (QC): 6 Sit to Lying (QC): 6 Lying to Sitting/Side of Bed(Q: 6 Sit to Stand (QC): 6 Chair/Zhb-ci-Zitzy Xfer(QC): 6 Toilet Transfer (QC): 6 Car Transfer (QC): 6 Does the Patient Walk: Yes Mode of Locomotion: Walk Anticipated Mode of Locomotion: Walk Walk 10 feet (QC): 6 Walk 50 ft with 2 Turns(QC): 6 Walk 150 ft (QC): 6 Walking 10ft on uneven surface: 6 Distance: Gait distance 175-200' with FWW, when fatigued the (R) LE lags Gait Assistive Device: FWW Does the Pt Use a Wheelchair: No Wheel 50 ft with 2 turns (QC): 9 Wheel 150 ft (QC): 9 Type of Wheelchair: N/A #of Steps: 6 1 Step (curb) (QC): 6 4 Steps (QC): 5 12 Steps (QC): 5 (5 steps with (B) rails completed x 3 for 15 steps today, SBA) Walking Assistive Device: Walker Balance Sitting Static: Normal Balance Sitting Dynamic: Good Balance-Standing Static: Fair Picking up an Object (QC): 6 Occupational Therapy Decreased Activ Tolerance, Visual-Perceptual Deficit Eating (QC): 6 (Demonstrates ability to complete.) Oral Hygiene (QC): 6 Shower/Bathe Self (QC): 6 Upper Body Dressing (QC): 6 Lower Body Dressing (QC): 6 On/Off Footwear (QC): 6 Toileting Hygiene (QC): 6 PT [employer] Associate Goals [employer] Sales Associate Goals PT Halfway Goals Time Frame: Jun 10, 2022 Roll Left to Right (QC): 6 Sit to Lying (QC): 6 Lying-Sitting on Side/Bed(QC): 6 Sit to Stand (QC): 6 Chair/Xua-jn-Feggr Xfer(QC): 6 (Patient to perform stand<>pivot transfers with FWW mod (I) with correct hand placement 100% of time.) Toilet/Commode Transfer (QC): 6 Car Transfer (QC): 5 Does the Patient Walk: Yes Walk 10 feet (QC): 6 Walk 10ft-Uneven Surface(QC): 6 (With FWW) Walk 50ft with 2 Turns (QC): 6 Walk 150 ft (QC): 6 (Patient will ambulate 200' mod (I) with FWW with improved stepping strategy (R) LE.) Does the Pt use WC or Scooter?: No Wheel 50 feet with 2 turns (QC: 9 Type: N/A Wheel 150 feet: 9 Type: N/A 1 Step (curb) (QC): 6 (with FWW) 4 Steps (QC): 5 ((B) handrails) 12 Steps (QC): 5 ((B) handrails, 5 steps completed x 3 times for 15 step today, SBA) Picking up an Object (QC): 6 All goals met OT Halfway Goals [employer] Sales Associate Goals Time Frame: Jun 11, 2022 Acute change in mental status: 0 Inattention: 0 Disorganized thinkin Altered level of consciousness: 0 Eating (QC): 6 (met) Oral Hygiene (QC): 6 (met) Toileting Hygiene (QC): 6 (met) Shower/Bathe Self (QC): 6 (met) Upper Body Dressing (QC): 6 (met) Lower Body Dressing (QC): 6 (met) On/Off Footwear (QC): 6 (met) Additional Goals: 1-Demonstrate ADL Tasks, 2-Verbalize Understanding, 3- ImproveStrength/Pelon 1=Demonstrate adherence to instructed precautions during ADL tasks. 2=Patient will verbalize/demonstrate understanding of assistive devices/modifications for ADL. 3=Patient will improve strength/tolerance for activity to enable patient to perform ADL's. Elizabeth Zamarripa PT May 26, 2022 10:27
--- NOTE | 2022-05-26 13:54 | Therapy Team Discharge Summary ---
Therapy Discharge Summary Discharge Recommendations Date of Discharge Physical Therapy Roll Left to Right (QC): 6 Sit to Lying (QC): 6 Lying to Sitting/Side of Bed(Q: 6 Sit to Stand (QC): 6 Chair/Wxc-ra-Plaqp Xfer(QC): 6 Toilet Transfer (QC): 6 Car Transfer (QC): 6 Does the Patient Walk: Yes Mode of Locomotion: Walk Anticipated Mode of Locomotion: Walk Walk 10 feet (QC): 6 Walk 50 ft with 2 Turns(QC): 6 Walk 150 ft (QC): 6 Walking 10ft on uneven surface: 6 Distance: Gait distance 175-200' with FWW, when fatigued the (R) LE lags Gait Assistive Device: FWW Does the Pt Use a Wheelchair: No Wheel 50 ft with 2 turns (QC): 9 Wheel 150 ft (QC): 9 Type of Wheelchair: N/A #of Steps: 6 1 Step (curb) (QC): 6 4 Steps (QC): 5 12 Steps (QC): 5 (5 steps with (B) rails completed x 3 for 15 steps today, SBA) Walking Assistive Device: Walker Balance Sitting Static: Normal Balance Sitting Dynamic: Good Balance-Standing Static: Fair Picking up an Object (QC): 6 Occupational Therapy Pt admitted to ARU s/p CVA. At [facility], pt was independent with ADLS and functional mobility, no AD. Upon initial evaluation, pt required set up with eating, CGA with oral care, showering, LE dressing and toileting, and she was IND with UE dressing and footwear. OT tx focused on increasing BUE Strength and activity tolerance, and increasing safety and independence with ADLs and functional mobility. Pt made good progress towards goals, attaining IND level with all ADLs. Pt discharged from facility, d/c from OT. Decreased Activ Tolerance, Visual-Perceptual Deficit Eating (QC): 6 (Demonstrates ability to complete.) Oral Hygiene (QC): 6 Shower/Bathe Self (QC): 6 Upper Body Dressing (QC): 6 Lower Body Dressing (QC): 6 On/Off Footwear (QC): 6 Toileting Hygiene (QC): 6 PT Shelter Goals [employer]ver Goals PT [employer] Goals Time Frame: Jun 10, 2022 Roll Left to Right (QC): 6 Sit to Lying (QC): 6 Lying-Sitting on Side/Bed(QC): 6 Sit to Stand (QC): 6 Chair/Eqa-wm-Ngoyy Xfer(QC): 6 (Patient to perform stand<>pivot transfers with FWW mod (I) with correct hand placement 100% of time.) Toilet/Commode Transfer (QC): 6 Car Transfer (QC): 5 Does the Patient Walk: Yes Walk 10 feet (QC): 6 Walk 10ft-Uneven Surface(QC): 6 (With FWW) Walk 50ft with 2 Turns (QC): 6 Walk 150 ft (QC): 6 (Patient will ambulate 200' mod (I) with FWW with improved stepping strategy (R) LE.) Does the Pt use WC or Scooter?: No Wheel 50 feet with 2 turns (QC: 9 Type: N/A Wheel 150 feet: 9 Type: N/A 1 Step (curb) (QC): 6 (with FWW) 4 Steps (QC): 5 ((B) handrails) 12 Steps (QC): 5 ((B) handrails, 5 steps completed x 3 times for 15 step today, SBA) Picking up an Object (QC): 6 OT Shelter Goals [employer] Goals Time Frame: Jun 11, 2022 Acute change in mental status: 0 Inattention: 0 Disorganized thinkin Altered level of consciousness: 0 Eating (QC): 6 (met) Oral Hygiene (QC): 6 (met) Toileting Hygiene (QC): 6 (met) Shower/Bathe Self (QC): 6 (met) Upper Body Dressing (QC): 6 (met) Lower Body Dressing (QC): 6 (met) On/Off Footwear (QC): 6 (met) Additional Goals: 1-Demonstrate ADL Tasks, 2-Verbalize Understanding, 3- ImproveStrength/Pelon 1=Demonstrate adherence to instructed precautions during ADL tasks. 2=Patient will verbalize/demonstrate understanding of assistive devices/modifications for ADL. 3=Patient will improve strength/tolerance for activity to enable patient to perform ADL's. TERENCE CARRILLO OT May 26, 2022 13:54
[2022-05-26 14:01] VITALS: BP 139/65
== END 2022-05-26 10:45 | disposition home or self-care (01) | DRG 57 ==
PROVIDERS: ADMIT Internal Medicine; ATTEND Internal Medicine
DX: I69.351 Hemiplegia and hemiparesis following cerebral infarction affecting right dominant side (principal); I10 Essential (primary) hypertension; E78.00 Pure hypercholesterolemia, unspecified; F41.9 Anxiety disorder, unspecified; F32.A Depression, unspecified; R53.81 Other malaise; F17.210 Nicotine dependence, cigarettes, uncomplicated; Z79.899 Other long term (current) drug therapy; Z88.0 Allergy status to penicillin
CPT/HCPCS: 36415; 80053; 85025